=== PATIENT | male | born 1940 | race Caucasian/White ===

== ENCOUNTER 2019-02-06 12:33 | Inpatient (IN) | payer MEDICARE, BC ==
[2019-02-06] MEDS ORDERED: SODIUM CHLORIDE 0.9% 500 ML 500 ML IV STA (12:34)
--- NOTE | 2019-02-06 12:55 | ED ---
General Adult HPI - General Chief complaint: Neuro Symptoms/Deficit Stated complaint: Poss stroke Time Seen by Provider: 02/06/19 12:34 Source: patient, RN notes reviewed, old records reviewed Mode of arrival: wheelchair Limitations: no limitations - History of Present Illness Initial comments: 78-year-old male presenting with slurred speech, right arm and right leg weakness. Patient symptoms began yesterday at 4 PM this was approximately 20 hours prior to arrival. He was seen by his primary care physician who recommended he come to the emergency department for evaluation. Patient is currently on 81 mg aspirin, no anticoagulation. He does report a headache which began suddenly yesterday afternoon. He went to bed after taking Tylenol with so me improvement in his symptoms. He has no previous history of CVA or TIA. Patient does endorse some gait instability. Denies central chest pain. Denies vomiting or diarrhea. - Related Data Home Medications Medication Instructions Recorded Confirmed Aspirin [Adult Low Dose Aspirin EC] 81 mg PO HS 06/18/16 02/06/19 Metoprolol Tartrate [Lopressor] 50 mg PO BID 06/18/16 02/06/19 Gabapentin [Neurontin] 300 mg PO BID 02/06/19 02/06/19 Montelukast [Singulair] 10 mg PO HS 02/06/19 02/06/19 Propylene Glycol/Peg 400/Pf 1 drop BOTH EYES Q4H PRN 02/06/19 02/06/19 [Systane 0.3-0.4% Eye Drops] Allergies Allergy/AdvReac Type Severity Reaction Status Date / Time acetaminophen [From Vicodin] Allergy Unknown Verified 02/06/19 14:08 erythromycin base Allergy hives, Verified 02/06/19 14:08 tongue swelling hydrocodone [From Vicodin] Allergy Unknown Verified 02/06/19 14:08 oxycodone [From OxyContin] Allergy Unknown Verified 02/06/19 14:08 Penicillins Allergy Unknown Verified 02/06/19 14:08 Childhood Review of Systems ROS Statement: Those systems with pertinent positive or pertinent negative responses have been documented in the HPI. ROS Other: All systems not noted in ROS Statement are negative. Past Medical History Past Medical History: GERD/Reflux, Hypertension Additional Past Medical History / Comment(s): hx ulcers, History of Any Multi-Drug Resistant Organisms: None Reported Past Surgical History: Appendectomy, Back Surgery, Joint Replacement, Tonsillectomy Additional Past Surgical History / Comment(s): silke knee replacement, silke shoulder rotator cuff, rt shoulder replacement, silke cataract surgery Past Anesthesia/Blood Transfusion Reactions: No Reported Reaction Past Psychological History: No Psychological Hx Reported Smoking Status: Former smoker Past Alcohol Use History: None Reported Past Drug Use History: None Reported - Past Family History Mother Family Medical History: Cancer General Exam Limitations: no limitations General appearance: alert, in no apparent distress Head exam: Present: atraumatic, normocephalic Eye exam: Present: normal appearance, PERRL, EOMI ENT exam: Present: normal exam Neck exam: Present: normal inspection. Absent: tenderness, meningismus Respiratory exam: Present: normal lung sounds bilaterally. Absent: respiratory distress Cardiovascular Exam: Present: normal rhythm, bradycardia GI/Abdominal exam: Present: soft. Absent: distended, tenderness Extremities exam: Present: normal inspection, normal capillary refill. Absent: pedal edema Neurological exam: Present: alert, oriented X3, motor sensory deficit, other (NIH 4) Psychiatric exam: Present: normal affect, normal mood Skin exam: Present: warm, dry, intact. Absent: cyanosis, diaphoretic Course Vital Signs 02/06/19 02/06/19 02/06/19 12:35 12:47 12:50 Temperature 97.5 F L Pulse Rate 53 L 55 L Respiratory 18 14 Rate Blood Pressure 162/73 O2 Sat by Pulse 98 98 97 Oximetry 02/06/19 02/06/19 02/06/19 13:00 13:10 13:20 Temperature Pulse Rate 57 L Respiratory 23 Rate Blood Pressure 165/83 165/83 170/79 O2 Sat by Pulse 96 Oximetry - Reevaluation(s) Reevaluation #1: 02/06/19 1302 Case discussed with stroke neurologist Dr. Gustafson, patient is not TPA candidate, he is not a thrombectomy candidate given the low NIH and onset of symptoms. EKG Findings - EKG Comments: EKG Findings:: EKG: Sinus bradycardia, LVH, rate of 52, AK interval 164, QRS duration 96, QTC 422, no ST segment elevation. Medical Decision Making - Medical Decision Making 78-year-old male presenting with 20 hours history of dysarthria, right arm weakness and right leg weakness. Patient NIH is 4. He is outside the TPA window. He is still within intervention window, stroke was activated upon arrival. CT CT angiography is obtained. Case is discussed with stroke neurologist. CT is negative for intracranial hemorrhage or mass effect, CT angiography negative for acute occlusion or stenosis. Patient has mild hyperkalemia and elevated serum creatinine. He is given IV hydration. Blood p ressure is elevated and will allow for elevated blood pressure in the setting of acute stroke. Patient is given an aspirin and IV hydration emergency department. Will be admitted for further stroke evaluation. Case is discussed with Dr. Delaney who will admit the patient. - Lab Data Result diagrams: 02/06/19 12:53 02/06/19 12:53 Lab Results 02/06/19 02/06/19 02/06/19 Range/Units 12:53 12:53 12:53 WBC 7.7 (3.8-10.6) k/uL RBC 5.50 (4.30-5.90) m/uL Hgb 15.9 (13.0-17.5) gm/dL Hct 48.1 (39.0-53.0) % MCV 87.4 (80.0-100.0) fL MCH 28.9 (25.0-35.0) pg MCHC 33.1 (31.0-37.0) g/dL RDW 13.9 (11.5-15.5) % Plt Count 237 (150-450) k/uL Neutrophils % 56 % Lymphocytes % 25 % Monocytes % 10 % Eosinophils % 4 % Basophils % 1 % Neutrophils # 4.3 (1.3-7.7) k/uL Lymphocytes # 1.9 (1.0-4.8) k/uL Monocytes # 0.8 (0-1.0) k/uL Eosinophils # 0.3 (0-0.7) k/uL Basophils # 0.1 (0-0.2) k/uL PT 11.6 (9.0-12.0) sec INR 1.1 (<1.2) APTT 24.6 (22.0-30.0) sec Sodium 142 (137-145) mmol/L Potassium 5.4 H (3.5-5.1) mmol/L Chloride 106 (98-107) mmol/L Carbon Dioxide 26 (22-30) mmol/L Anion Gap 10 mmol/L BUN 27 H (9-20) mg/dL Creatinine 1.33 H (0.66-1.25) mg/dL Est GFR (CKD-EPI)AfAm 58 (>60 ml/min/1.73 sqM) Est GFR (CKD-EPI)NonAf 50 (>60 ml/min/1.73 sqM) Glucose 101 H (74-99) mg/dL POC Glucose (mg/dL) (75-99) mg/dL POC Glu [employer] ID Calcium 9.7 (8.4-10.2) mg/dL Total Bilirubin 0.8 (0.2-1.3) mg/dL AST 32 (17-59) U/L ALT 21 (21-72) U/L Alkaline Phosphatase 87 (38-126) U/L Troponin I (0.000-0.034) ng/mL Total Protein 7.4 (6.3-8.2) g/dL Albumin 4.5 (3.5-5.0) g/dL 02/06/19 02/06/19 Range/Units 12:53 12:59 WBC (3.8-10.6) k/uL RBC (4.30-5.90) m/uL Hgb (13.0-17.5) gm/dL Hct (39.0-53.0) % MCV (80.0-100.0) fL MCH (25.0-35.0) pg MCHC (31.0-37.0) g/dL RDW (11.5-15.5) % Plt Count (150-450) k/uL Neutrophils % % Lymphocytes % % Monocytes % % Eosinophils % % Basophils % % Neutrophils # (1.3-7.7) k/uL Lymphocytes # (1.0-4.8) k/uL Monocytes # (0-1.0) k/uL Eosinophils # (0-0.7) k/uL Basophils # (0-0.2) k/uL PT (9.0-12.0) sec INR (<1.2) APTT (22.0-30.0) sec Sodium (137-145) mmol/L Potassium (3.5-5.1) mmol/L Chloride (98-107) mmol/L Carbon Dioxide (22-30) mmol/L Anion Gap mmol/L BUN (9-20) mg/dL Creatinine (0.66-1.25) mg/dL Est GFR (CKD-EPI)AfAm (>60 ml/min/1.73 sqM) Est GFR (CKD-EPI)NonAf (>60 ml/min/1.73 sqM) Glucose (74-99) mg/dL POC Glucose (mg/dL) 94 (75-99) mg/dL POC Glu [employer] ID Latonya Arteaga A Calcium (8.4-10.2) mg/dL Total Bilirubin (0.2-1.3) mg/dL AST (17-59) U/L ALT (21-72) U/L Alkaline Phosphatase (38-126) U/L Troponin I <0.012 (0.000-0.034) ng/mL Total Protein (6.3-8.2) g/dL Albumin (3.5-5.0) g/dL Disposition Clinical Impression: Cerebrovascular accident Disposition: ADMITTED IP TO THIS [facility] Condition: Stable Is patient prescribed a controlled substance at d/c from ED?: No Referrals: Judson Newman MD [Primary Care Provider] - 1-2 days Decision to Admit Reason: Admit from EC Decision Date: 02/06/19 Decision Time: 14:39
[2019-02-06 13:07] LABS: Basophils # (A) 0.1 k/uL (0-0.2); Basophils % (A) 1 %; Eosinophils # (A) 0.3 k/uL (0-0.7); Eosinophils % (A) 4 %; HCT 48.1 % (39.0-53.0); HGB 15.9 gm/dL (13.0-17.5); Lymphocytes # (A) 1.9 k/uL (1.0-4.8); Lymphocytes % (A) 25 %; MCH 28.9 pg (25.0-35.0); MCHC 33.1 g/dL (31.0-37.0); MCV 87.4 fL (80.0-100.0); Mean Platelet Volume 6.8; Monocytes # (A) 0.8 k/uL (0-1.0); Monocytes % (A) 10 %; Neutrophils # (A) 4.3 k/uL (1.3-7.7); Neutrophils % (A) 56 %; Platelet Count 237 k/uL (150-450); RDW 13.9 % (11.5-15.5); WBC 7.7 k/uL (3.8-10.6)
[2019-02-06 13:13] LABS: INR 1.1 (<1.2); Partial Thromboplastin Time 24.6 sec (22.0-30.0); Prothrombin Time 11.6 sec (9.0-12.0)
--- NOTE | 2019-02-06 13:19 | CT ---
EXAMINATION TYPE: CT brain wo con DATE OF EXAM: 02/06/2019 COMPARISON: None HISTORY: Right sided weakness starting yesterday. Unenhanced CT of the brain was performed. The ventricles, basal cisterns and sulci overlying the cerebral convexities demonstrate mild enlargem ent. There is no evidence for intracranial hemorrhage or sulcal effacement. There is decreased attenuation about the periventricular white matter and deep white matter of both c erebral hemispheres, compatible with chronic small vessel ischemia. Differential diagnosis does inclu de demyelination. No mass effects are seen.No midline shift. Osseous calvarium is intact. If symptoms persist consider MRI. IMPRESSION: 1. Age related atrophic and chronic small vessel ischemic change without acute intracranial process s een at this time.
[2019-02-06 13:21] LABS: Albumin 4.5 g/dL (3.5-5.0); Calcium 9.7 mg/dL (8.4-10.2); Potassium 5.4 mmol/L (3.5-5.1); Total Bilirubin 0.8 mg/dL (0.2-1.3); Total Protein 7.4 g/dL (6.3-8.2)
[2019-02-06 13:26] LABS: Glucose,Whole Blood 94 mg/dL (75-99)
--- NOTE | 2019-02-06 13:30 | XR ---
EXAMINATION TYPE: XR chest 1V portable DATE OF EXAM: 02/06/2019 COMPARISON: None INDICATION: Altered mental status right-sided weakness TECHNIQUE: Single frontal view of the chest is obtained. FINDINGS: The heart size is enlarged. The pulmonary vasculature is normal. The lungs are clear. Right shoulder prosthesis is evident. IMPRESSION: 1. Cardiomegaly
--- NOTE | 2019-02-06 13:32 | CT ---
EXAMINATION TYPE: CT angio head neck DATE OF EXAM: 02/06/2019 COMPARISON: None HISTORY: Right sided weakness starting yesterday. CT DLP: 2945.4 mGycm CONTRAST: Performed with IV Contrast, patient injected with 100 mL of Isovue 370. Combination Contrast CTA cervical carotids and [place] CTA cervical carotids with 3-D recons truction Contrast CTA of the cervical carotids was performed 3-D reconstruction imaging obtained at a separate workstation. Right carotid system: Mild plaque is seen of the right common carotid artery. There is mild plaque a lso noted at the carotid bulb and proximal ICA. No significant diameter reduction. ECA is patent. Right vertebral artery appears unremarkable. Left carotid system: Mild plaque is seen of the left common carotid artery. There is mild plaque als o noted at the carotid bulb and proximal ICA. No significant diameter reduction. ECA is patent. Lef t vertebral artery appears unremarkable. IMPRESSION: 1. No significant diameter reduction to account for the patient's symptoms. CTA [place] with 3-D reconstruction Contrast CTA of the [place] was performed 3-D reconstruction imaging obtained at a separate workstation. Vertebrobasilar system as well as intracranial portions of the internal carotid arteries and their ma giovana tributaries are patent. I do not see evidence for sizable aneurysm or vascular malformation. Pl ease note MRI provides greater sensitivity and specificity. Visualized brain appears grossly unremar kable. IMPRESSION: 1. No significant abnormality.
[2019-02-06] MEDS ORDERED: SODIUM CHLORIDE 0.9% 500 ML 500 ML IV ONE (13:57)
[2019-02-06] MEDS ORDERED: ASPIRIN 325 MG TAB PO STA (13:57)
[2019-02-06] MEDS: SODIUM CHLORIDE 0.9% 1,000 ML IV SCH (14:15)
[2019-02-06] MEDS ORDERED: ARTIFICIAL TEARS-HYPROMELLOSE DROPS 15 ML BTL BOTH EYES PRN (15:25)
--- NOTE | 2019-02-06 15:39 | P.HPIM ---
History of Present Illness H&P Date: 02/06/19 Chief Complaint: Right-sided weakness and slurred speech The patient is a right hand dominant 78-year-old morbidly obese woman with a past medical history of essential hypertension, former smoker quit 28 years ago who presents to the ER via private vehicle after being referred here by his PCP. Apparently the patient began having slurred speech and right-sided weakness at approximately 4 PM yesterday, with the sudden onset of a global headache and right-sided facial weakness. He denies any loss of consciousness, blurry vision, Patient's reported that she did not take them here at that time as he was having a drink of beer and she thought that his symptoms might of been due to to alcohol. Later that evening the patient was unable to be comfortable and apparently began having episodic spasms on the right the patient is also had difficulty maintaining his balance when ambulating. At present the patient reports that he feels better and that his symptoms A weakness are much improved. The patient also reported some right sided chest pressure that was moderate nonradiating, he denied any shortness of breath, denied palpitations, denied lower extremity swelling, denies subjective fevers chills night sweats. In the ER the patient had a comprehensive workup CT angiography of the head and neck are performed that showed age-related atrophy and chronic small vessel ischemic changes without any acute intracranial process and was also negative for any clinically significant stenosis, EKG showed sinus bradycardia Without suggestion of any acute ischemia. Chest x-ray was consulted with cardiomegaly but was negative for any acute process. Noted lab abnormalities included a potassium of 5.4, BUN of 27 creatinine of 1.33, troponin was negative at less than 0.012. The patient was given aspirin and a liter of fluids and recommended for admission Review of Systems Pertinent positives per HPI all other review of systems otherwise negative Past Medical History Past Medical History: GERD/Reflux, Hypertension Additional Past Medical History / Comment(s): hx ulcers, History of Any Multi-Drug Resistant Organisms: None Reported Past Surgical History: Appendectomy, Back Surgery, Joint Replacement, Tonsillectomy Additional Past Surgical History / Comment(s): silke knee replacement, silke shoulder rotator cuff, rt shoulder replacement, silke cataract surgery Past Anesthesia/Blood Transfusion Reactions: No Reported Reaction Past Psychological History: No Psychological Hx Reported Smoking Status: Former smoker Past Alcohol Use History: None Reported Past Drug Use History: None Reported - Past Family History Mother Family Medical History: Cancer Medications and Allergies Home Medications Medication Instructions Recorded Confirmed Type Aspirin [Adult Low Dose Aspirin EC] 81 mg PO HS 06/18/16 02/06/19 History Metoprolol Tartrate [Lopressor] 50 mg PO BID 06/18/16 02/06/19 History Gabapentin [Neurontin] 300 mg PO BID 02/06/19 02/06/19 History Montelukast [Singulair] 10 mg PO HS 02/06/19 02/06/19 History Propylene Glycol/Peg 400/Pf 1 drop BOTH EYES Q4H PRN 02/06/19 02/06/19 History [Systane 0.3-0.4% Eye Drops] Allergies Allergy/AdvReac Type Severity Reaction Status Date / Time acetaminophen [From Vicodin] Allergy Unknown Verified 02/06/19 14:08 erythromycin base Allergy hives, Verified 02/06/19 14:08 tongue swelling hydrocodone [From Vicodin] Allergy Unknown Verified 02/06/19 14:08 oxycodone [From OxyContin] Allergy Unknown Verified 02/06/19 14:08 Penicillins Allergy Unknown Verified 02/06/19 14:08 Childhood Physical Exam Vitals: Vital Signs Temp Pulse Resp BP Pulse Ox 02/06/19 13:20 57 L 23 170/79 96 02/06/19 13:10 165/83 02/06/19 13:00 165/83 02/06/19 12:50 55 L 14 97 02/06/19 12:47 98 02/06/19 12:35 97.5 F L 53 L 18 162/73 98 Intake and Output 02/06/19 02/06/19 02/06/19 06:59 14:59 22:59 Other: Weight 99.79 kg Constitutional: No acute distress, conversant, pleasant Eyes: Anicteric sclerae, moist conjunctiva, no lid-lag, PERRLA ENMT: NC/AT,Oropharynx clear, no erythema, exudates Neck:Supple, FROM, no masses, or JVD, No carotid bruits; No thyromegaly Lungs: Clear to auscultation, Clear to percussion, Normal respiratory effort, no accessory muscle use Cardiovascular: Heart regular in rate and rhythm, No murmurs, gallops, or rubs no peripheral edema Abdominal: Soft Nontender, nom distended, no guarding, no rebound or rigidity, Normoactive bowel sounds No hepatomegaly, No splenomegaly, No palpable mass No abdominal wall hernia noted Skin: Normal temperature, tone, texture, turgor, No induration No subcutaneous nodules, No rash, lesions, No ulcers Extremities:No digital cyanosis No clubbing, Pedal pulses intact and symmetrical Radial pulses intact and symmetrical Normal gait and station, No calf tenderness Psychiatric: Alert and oriented to person, place and time, Appropriate affect Intact judgement Neuro: Muscles Strength 5/5 in all 4 extremities, Sensation to light touch grossly present throughout, Cranial nerves II-XII grossly intact. No focal sensory deficits Results CBC & Chem 7: 02/06/19 12:53 02/06/19 12:53 Labs: Abnormal Lab Results - Last 24 Hours (Table) 02/06/19 Range/Units 12:53 Potassium 5.4 H (3.5-5.1) mmol/L BUN 27 H (9-20) mg/dL Creatinine 1.33 H (0.66-1.25) mg/dL Glucose 101 H (74-99) mg/dL Assessment and Plan (1) Right sided weakness Current Visit: Yes Status: Acute Code(s): R53.1 - WEAKNESS SNOMED Code(s): 645540706 (2) Accelerated hypertension Current Visit: Yes Status: Acute Code(s): I10 - ESSENTIAL (PRIMARY) HYPERTENSION SNOMED Code(s): 08864074 (3) Obesity Current Visit: Yes Status: Acute Code(s): E66.9 - OBESITY, UNSPECIFIED SNOMED Code(s): 675819003 (4) Sinus bradycardia Current Visit: Yes Status: Acute Code(s): R00.1 - BRADYCARDIA, UNSPECIFIED SNOMED Code(s): 93124169 (5) LORI (acute kidney injury) Current Visit: Yes Status: Acute Code(s): N17.9 - ACUTE KIDNEY FAILURE, UNSPECIFIED SNOMED Code(s): 94671604 (6) Hyperkalemia Current Visit: Yes Status: Acute Code(s): E87.5 - HYPERKALEMIA SNOMED Code(s): 37505321 Plan: The patient is admitted with concern for acute CVA after presented with right- sided weakness, the patient presented at approximately 20 hours after symptom onset and was identified as being not a candidate for TPA as was well outside of stroke window. CTA of the head and neck was negative for any acute intracranial pathology, will plan to consult neurology obtain a 2-D echocardiogram, and MRI. We'll continue to patient on antiplatelet Therapy with aspirin, resume his metoprolol and await further recommendation by neurology. Noted LORI vs CKD will hydrate and see if his creatinine returned to normal possibly prerenal We'll continue to follow his clinical course Anticipated discharge: 1-2 days CODE STATUS: Full code Discussed plan of care with the patient and his Time with Patient: Greater than 30
--- NOTE | 2019-02-06 18:51 | MR ---
EXAMINATION TYPE: MR brain wo con DATE OF EXAM: 02/06/2019 COMPARISON: CT brain 02/06/2019 HISTORY: Right sided weakness CONTRAST: Performed utilizing 0 mL intravenous Gadavist gadolinium contrast. TECHNIQUE: Multiplanar, multiecho imaging on a 3.0 T[place]ani magnet is performed through the brain. Stud y is performed within 24 hours of arrival to the hospital. The craniovertebral junction is normal. The pituitary is normal. Diffusion-weighted imaging is performed. Increased radiotracer accumulation within the left latasha com patible with an acute brainstem ischemic change. Mild increased signal is present within the left latasha on the inversion recovery weighted sequence cor responding to the diffusion-weighted imaging. There are additional multiple subcortical and periventricular white matter changes present bilaterall y likely on the basis of chronic white matter ischemic change. Ventricles and sulci are prominent for the patient age. IMPRESSIONS: 1. Focal diffusion increased signal within the left latasha near the midline compatible with an acute is chemic change within the brainstem. 2. Extensive periventricular deep white matter changes compatible with chronic white matter ischemic change. A [place] level critical message alert has been initiated for Rashid Delaney MD via the [employer] Critical Results System on 02/06/2019 6:48 PM. This message alert has been sent to Rashid Delaney MD via the preferences provided by the clinician for the receipt of Radiology Critical Findings. Message ID [id number].
[2019-02-06 18:58] VITALS: BMI 34.8
[2019-02-06] MEDS ORDERED: IBUPROFEN 400 MG TAB PO PRN (20:35)
[2019-02-06] MEDS ORDERED: NON-FORMULARY DRUG (Aspirin [Adult Low Dose Aspirin Ec] 81 MG) PO SCH (21:00)
[2019-02-06] MEDS: METOPROLOL TARTRATE 50 MG TAB PO SCH (21:27)
[2019-02-06] MEDS: GABAPENTIN 300 MG CAP PO SCH (21:27)
[2019-02-06] MEDS: MONTELUKAST 10 MG TAB PO SCH (21:28)
[2019-02-06] MEDS: ATORVASTATIN 80 MG TAB PO SCH (21:28)
[2019-02-07] MEDS: SODIUM CHLORIDE 0.9% 1,000 ML IV SCH ×2 (03:38→17:00)
[2019-02-07 06:33] LABS: Calcium 8.8 mg/dL (8.4-10.2); Potassium 4.8 mmol/L (3.5-5.1)
[2019-02-07] MEDS: METOPROLOL TARTRATE 50 MG TAB PO SCH ×2 (08:54→20:02)
[2019-02-07] MEDS: GABAPENTIN 300 MG CAP PO SCH ×2 (08:54→20:01)
[2019-02-07] MEDS ORDERED: ASPIRIN 325 MG TAB PO SCH (09:00)
--- NOTE | 2019-02-07 15:45 | P.PN ---
Subjective Progress Note Date: 02/07/19 Principal diagnosis: Acute CVA Patient was seen and examined. No acute events overnight. Patient reports improvement in his symptoms since admission. He continues to complain of right upper and lower extremity weakness. He denies any slurred speech or focal T swallowing. He denies any difficulty with his gait, states that he was able to ambulate up and down the hallways. He denies any chest pain, shortness of breath or palpitations. Family is at bedside. Looking for to going home. Objective - Vital Signs Vital signs: Vital Signs Temp 97.5 F L 02/07/19 11:59 Pulse 60 02/07/19 11:59 Resp 16 02/07/19 11:59 BP 149/73 02/07/19 11:59 Pulse Ox 96 02/07/19 11:59 Intake & Output 02/06/19 02/07/19 02/07/19 18:59 06:59 18:59 Intake Total 1000 300 240 Balance 1000 300 240 Weight 99.79 kg 99.7 kg Intake: Amount of Fluid Infused ( 1000 ml) Intake, IV Titration 300 Amount Sodium Chloride 0.9% 1, 300 000 ml @ 75 mls/hr IV . [id number] [facility] Rx#:[id number] Oral 240 Other: Voiding Method Toilet # Voids 1 - Exam General: [non toxic], [no distress], [appears at stated age] Derm: [warm], [dry] Head: [atraumatic], [normocephalic], [symmetric] Eyes: [EOMI], [no lid lag], [anicteric sclera] Mouth: [no lip lesion], [mucus membranes moist] Cardiovascular: [S1S2 reg], [no murmur], [positive DP pulse bilateral] Lungs: [CTA bilateral], [no rhonchi, no rales] , [no accessory muscle use] Abdominal: [soft], [ nontender to palpation], [no guarding], [no appreciable organomegaly] Ext: [no gross muscle atrophy], [no edema], [no contractures] Neuro: [ CN II-XI grossly intact], [right-sided 4 out of 5 upper and lower extremity, 5 out of 5 on the left side], [right-sided ataxia on [id number]] Psych: [Alert], [oriented], [appropriate affect] - Labs CBC & Chem 7: 02/06/19 12:53 02/07/19 05:53 Labs: Abnormal Lab Results - Last 24 Hours (Table) 02/07/19 Range/Units 05:53 Chloride 112 H (98-107) mmol/L BUN 25 H (9-20) mg/dL HDL Cholesterol 28 L (40-60) mg/dL Assessment and Plan Assessment: Assessment and Plan Acute CVA in the left latasha Hypertension Obesity Acute kidney injury CT brain and CTA head and neck negative for acute CVA. MRI brain confirms stroke in the left latasha. Lipid panel shows total cholesterol 139, LDL of 84 and HDL of 28. Plan: Continue Lipitor. Will change aspirin to Plavix. Advance neurochecks. Telemetry monitoring. Follow PT, OT and speech therapy. Follow n eurology consultation. Follow echocardiogram. BP 149/73. Plan: Continue metoprolol. Monitor vitals, adjust medications as necessary. BMI 34.4. Plan: Structured weight loss program. BUN 27-25. Creatinine from 1.332 within normal limits. Likely secondary to dehydration. Plan: Continue normal saline at 75 mL per hour. Daily BMP. DVT prophylaxis: [Heparin] Discussed with: [Patient and family] Anticipated discharge: [1-2 days] Anticipated discharge place: [Home versus rehab] A total of [30] minutes was spent on the care of this complex patient more than 50% of the time was spent in counseling and care coordination. Patient diagnosed with acute CVA. Workup underway. Neurology consultation pending. PT will continue to follow. Patient is pending clinical improvement.
--- NOTE | 2019-02-07 15:46 | P.CNNES ---
History of Present Illness Consult date: 02/07/19 Reason for Consult: CVA History of Present Illness: Patient is a 78-year-old male, with no significant past medical history, who developed stroke symptoms 2 days ago, on at 4 PM. Earlier he had drank a beer, and sometimes he gets a reaction after drinking beer. He was noticed to have some weakness on the right side, slurred speech, unsteady, walking like a drunk, walking with a wide base. He also noticed some numbness of the right side of the face. He attributed the symptoms to drinking beer, therefore did not take it seriously. The symptoms persisted by the next day, therefore he decided to come to the ER and arrived here yesterday on Saturday at around noon. Patient's blood pressure was 162/73, pulse rate 53 and temperature 97.5. Patient underwent computed tomography scan of the head without contrast, which revealed age-related atrophic and chronic small vessel ischemic changes without acute intracranial process. CTA of head and neck were normal. Patient was not a candidate for TPA, as he came outside the window for TPA. EKG showed sinus bradycardia. Patient underwent MRI of the brain without contrast, which revealed focal diffusion increased signal within the left latasha near the midline compatible with an acute ischemic change within the brainstem. Extensive periventricular white matter changes compatible with chronic white matter ischemic change. Chest x-ray showed cardiomegaly. Patient states that since he arrived to the hospital, he is feeling better. Patient denies any history of hypertension, diabetes. In fact his blood pressure was running normal 126/60 yesterday. He smoked 1 pack per day for 30- 40 years, quit 28 years ago. Patient states that he has been taking low-dose aspirin 81 mg for last 15-20 years. Patient's blood test shows normal CBC, PT/PTT. Sodium is normal potassium 5.4, BUN 27, creatinine 1.33. Total cholesterol is 139, LDL 84, HDL 28. Review of Systems As per HPI. Denies any chest pain shortness of breath, vision loss, diplopia. Past Medical History Past Medical History: GERD/Reflux, Hypertension Additional Past Medical History / Comment(s): hx ulcers, History of Any Multi-Drug Resistant Organisms: None Reported Past Surgical History: Appendectomy, Back Surgery, Joint Replacement, Tonsillectomy Additional Past Surgical History / Comment(s): silke knee replacement, silke shoulder rotator cuff, rt shoulder replacement, silke cataract surgery Past Anesthesia/Blood Transfusion Reactions: No Reported Reaction Smoking Status: Former smoker - Past Family History Mother Family Medical History: Cancer Medications and Allergies Home Medications Medication Instructions Recorded Confirmed Type Aspirin [Adult Low Dose Aspirin EC] 81 mg PO HS 06/18/16 02/06/19 History Metoprolol Tartrate [Lopressor] 50 mg PO BID 06/18/16 02/06/19 History Gabapentin [Neurontin] 300 mg PO BID 02/06/19 02/06/19 History Montelukast [Singulair] 10 mg PO HS 02/06/19 02/06/19 History Propylene Glycol/Peg 400/Pf 1 drop BOTH EYES Q4H PRN 02/06/19 02/06/19 History [Systane 0.3-0.4% Eye Drops] Allergies Allergy/AdvReac Type Severity Reaction Status Date / Time acetaminophen [From Vicodin] Allergy Unknown Verified 02/06/19 14:08 erythromycin base Allergy hives, Verified 02/06/19 14:08 tongue swelling hydrocodone [From Vicodin] Allergy Unknown Verified 02/06/19 14:08 oxycodone [From OxyContin] Allergy Unknown Verified 02/06/19 14:08 Penicillins Allergy Unknown Verified 02/06/19 14:08 Childhood Physical Examination - Vital Signs Vital Signs: Vital Signs Temp Pulse Pulse Resp BP BP Pulse Ox 02/07/19 11:59 97.5 F L 60 16 149/73 96 02/07/19 08:00 97.5 F L 66 16 121/62 93 L 02/07/19 04:00 98.1 F 67 18 129/61 95 02/07/19 00:00 98.0 F 69 18 120/58 95 02/06/19 20:00 98.1 F 63 18 133/61 95 02/06/19 17:35 96.7 F L 66 16 189/81 93 L 02/06/19 16:50 98.0 F 66 15 137/94 97 02/06/19 16:40 62 20 160/69 94 L 02/06/19 16:30 63 17 154/73 100 02/06/19 16:20 56 L 21 154/73 94 L 02/06/19 16:00 158/84 02/06/19 15:50 158/84 02/06/19 15:40 62 14 174/90 Intake and Output 02/07/19 02/07/19 02/07/19 06:59 14:59 22:59 Intake Total 240 Balance 240 Intake: Oral 240 Other: Voiding Method Toilet # Voids 1 Weight 99.7 kg On examination patient is an elderly male, very pleasant in no acute distress. Patient's speech is mildly dysarthric but no aphasia. On cranial nerve examination pupils are round and reacting visual chun are full, extraocular muscles are intact. Patient has mild right facial asymmetry, central type. Tongue protrudes to the midline. Palatal elevation and sensation normal on muscle strength testing patient has mild right pronator drift. The strength is normal in the left arm and left leg except left toe extension which is weak chronically for last several years however. On the right side his arm and deltoid is slightly weak partly related to some shoulder surgery in the past. The biceps and triceps appears normal, lathe tender is slightly decreased about 5-as compared to the left. Reflexes are diminished. Sensations are equal. There is mild dysmetria and ataxia for [id number] testing on the right. Tone and bulk of muscles normal. Patient walks with a mild wide base. Results - Laboratory Findings CBC and BMP: 02/06/19 12:53 02/07/19 05:53 Abnormal Lab Findings: Abnormal Labs 02/06/19 02/07/19 12:53 05:53 Potassium 5.4 H Chloride 112 H BUN 27 H 25 H Creatinine 1.33 H Glucose 101 H HDL Cholesterol 28 L Assessment and Plan Assessment: * Acute ischemic stroke, left pontine, probably due to small vessel disease. * Hypertension * X tobacco use Plan: * Await 2-D echo to rule out embolic source. * Patient has failed aspirin, therefore we will add Plavix 75 mg to the regimen. * Agree with starting low-dose Lipitor. * Do not aggressively treat blood pressure for 24 hours, unless > 200/110 for permissible hypertension in acute stroke stage. * PT OT, evaluate gait. Speech therapy.
[2019-02-07] MEDS: CLOPIDOGREL 75 MG TAB PO SCH (16:48)
[2019-02-07] MEDS: ATORVASTATIN 80 MG TAB PO SCH (20:01)
[2019-02-07] MEDS: HEPARIN SODIUM,PORCINE 5,000 UNIT/ML 1 ML VIAL SQ SCH (20:02)
[2019-02-07] MEDS: MONTELUKAST 10 MG TAB PO SCH (20:02)
[2019-02-08] MEDS: SODIUM CHLORIDE 0.9% 1,000 ML IV SCH (05:09)
[2019-02-08] MEDS: GABAPENTIN 300 MG CAP PO SCH (08:14)
[2019-02-08] MEDS: HEPARIN SODIUM,PORCINE 5,000 UNIT/ML 1 ML VIAL SQ SCH (08:14)
[2019-02-08] MEDS: CLOPIDOGREL 75 MG TAB PO SCH (08:14)
[2019-02-08] MEDS: METOPROLOL TARTRATE 50 MG TAB PO SCH (08:14)
[2019-02-08] MEDS ORDERED: ASPIRIN 81 MG PO SCH (09:00)
--- NOTE | 2019-02-08 11:19 | P.CRDCN ---
History of Present Illness Consult date: 02/08/19 Chief complaint: Right sided weakness History of present illness: This is an 78-year-old gentleman with a past medical history significant for hy pertension who was admitted to the hospital with TIA/stroke. The patient was in his usual state of health until yesterday when he was sitting on the kitchen table with his drinking a beer after that, the patient wants to walk and he felt difficulty walking and subsequently he felt right arm and right leg weakness with associated slurred speech. No loss of consciousness. No symptoms of chest pain or chest discomfort. And no feeling of heart racing or fluttering. Because of that he was admitted to the hospital for further evaluation. We involved in his care because off an episode of nonsustained ventricular tachycardia of 8 beats. I was informed about that by the nurse taking care of the patient. There is no documentation of the nonsustained ventricular tachycardia in the chart. He underwent a workup which came in to be unremarkable including electrolytes with potassium and magnesium. Troponin came in to be unremarkable with the EKG showed sinus rhythm without any ischemic ST or T-wave abnormalities. More importantly, the patient's symptoms have resolved completely. He underwent an echocardiogram which we will follow-up with that. 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 No coronary artery disease, congestive heart failure, or cardiac arrhythmia. Past Medical History Past Medical History: GERD/Reflux, Hypertension Additional Past Medical History / Comment(s): hx ulcers, History of Any Multi-Drug Resistant Organisms: None Reported Past Surgical History: Appendectomy, Back Surgery, Joint Replacement, Tonsillectomy Additional Past Surgical History / Comment(s): silke knee replacement, silke shoulder rotator cuff, rt shoulder replacement, silke cataract surgery Past Anesthesia/Blood Transfusion Reactions: No Reported Reaction Smoking Status: Former smoker - Past Family History Mother Family Medical History: Cancer Medications and Allergies Home Medications Medication Instructions Recorded Confirmed Type Aspirin [Adult Low Dose Aspirin EC] 81 mg PO HS 06/18/16 02/06/19 History Metoprolol Tartrate [Lopressor] 50 mg PO BID 06/18/16 02/06/19 History Gabapentin [Neurontin] 300 mg PO BID 02/06/19 02/06/19 History Montelukast [Singulair] 10 mg PO HS 02/06/19 02/06/19 History Propylene Glycol/Peg 400/Pf 1 drop BOTH EYES Q4H PRN 02/06/19 02/06/19 History [Systane 0.3-0.4% Eye Drops] Allergies Allergy/AdvReac Type Severity Reaction Status Date / Time acetaminophen [From Vicodin] Allergy Unknown Verified 02/06/19 14:08 erythromycin base Allergy hives, Verified 02/06/19 14:08 tongue swelling hydrocodone [From Vicodin] Allergy Unknown Verified 02/06/19 14:08 oxycodone [From OxyContin] Allergy Unknown Verified 02/06/19 14:08 Penicillins Allergy Unknown Verified 02/06/19 14:08 Childhood Physical Exam Vitals: Vital Signs Temp Pulse Resp BP Pulse Ox 02/08/19 08:00 97.8 F 70 16 153/79 95 02/08/19 04:00 98.0 F 63 18 142/74 95 02/08/19 00:00 98.2 F 61 18 137/66 95 02/07/19 20:00 98.4 F 69 18 161/53 95 02/07/19 16:00 97.0 F L 65 18 146/75 95 02/07/19 11:59 97.5 F L 60 16 149/73 96 Intake and Output 02/07/19 02/08/19 02/08/19 22:59 06:59 14:59 Intake Total 240 Balance 240 Intake: Oral 240 Other: Voiding Method Toilet Toilet # Voids 1 1 Weight 99.8 kg - Constitutional General appearance: no acute distress - Respiratory Respiratory: bilateral: CTA - Cardiovascular Rhythm: regular Heart sounds: normal: S1, S2 Results 02/06/19 12:53 02/07/19 05:53 Current Medications Generic Name Dose Route Start Last Admin Trade Name Freq PRN Reason Stop Dose Admin Artificial Tears 1 drops 02/06/19 15:25 Artificial Tear Drops BOTH EYES Q4H PRN Dry Eye(s) Aspirin 81 mg 02/08/19 09:00 02/08/19 08:14 Aspirin PO 81 mg DAILY MARLYS Administration Atorvastatin Calcium 80 mg 02/06/19 21:00 02/07/19 20:01 Lipitor PO 80 mg HS MARLYS Administration Clopidogrel Bisulfate 75 mg 02/07/19 16:00 02/08/19 08:14 Plavix PO 75 mg DAILY MARLYS Administration Gabapentin 300 mg 02/06/19 21:00 02/08/19 08:14 Neurontin PO 300 mg BID MARLYS Administration Heparin Sodium (Porcine) 5,000 unit 02/07/19 21:00 02/08/19 08:14 Heparin SQ 5,000 unit Q12HR MARLYS Administration Sodium Chloride 1,000 mls @ 75 mls/hr 02/06/19 14:00 02/08/19 05:09 Saline 0.9% IV Not Given .[id number] MARLYS Metoprolol Tartrate 50 mg 02/06/19 21:00 02/08/19 08:14 Lopressor PO 50 mg BID MARLYS Administration Montelukast Sodium 10 mg 02/06/19 21:00 02/07/19 20:02 Singulair PO 10 mg HS MARLYS Administration Intake and Output 02/07/19 02/08/19 02/08/19 22:59 06:59 14:59 Intake Total 240 Balance 240 Intake: Oral 240 Other: Voiding Method Toilet Toilet # Voids 1 1 Weight 99.8 kg 02/06/19 12:53 02/07/19 05:53 Assessment and Plan Assessment: Assessment #1 TIA/stroke #2 hypertension #3 nonsustained ventricular tachycardia Plan #1 continue the current medical regimen #2 repeat the magnesium and potassium 4 today #3 follow-up on the echocardiogram which was performed #4 possible discharge later on today Thank you for allowing us participate in his care
[2019-02-08 12:42] VITALS: BP 165/80; PULSE 58; RESP 18; TEMP 97.9
[2019-02-08 13:06] LABS: Calcium 9.7 mg/dL (8.4-10.2); Magnesium 2.1 mg/dL (1.6-2.3); Potassium 5.3 mmol/L (3.5-5.1)
--- NOTE | 2019-02-08 13:06 | P.DS ---
Providers Date of admission: 02/06/19 14:35 Expected date of discharge: 02/08/19 Attending physician: Rashid Delaney MD Consults: 02/06/19 16:09 Consult Physician Routine Consulting Provider: Willy Osorio Consult Reason/Comments: r sided weakness Do you want consulting provider notified?: Yes 02/07/19 16:30 Consult Physician Routine Consulting Provider: Marcelo Ramesh Consult Reason/Comments: Abnormal telemetry Do you want consulting provider notified?: Yes Primary care physician: [facility] Course: The patient is a right hand dominant 78-year-old morbidly obese woman with a past medical history of essential hypertension, former smoker quit 28 years ago who presents to the ER via private vehicle after being referred here by his PCP. Apparently the patient began having slurred speech and right-sided weakness at approximately 4 PM yesterday, with the sudden onset of a global headache and right-sided facial weakness. Patient was admitted due to concerns for stroke. Neurology was consulted from the ED. CT brain and CTA head and neck was negative for acute CVA. MRI brain confirmed stroke in the left latasha. Lipid panel showed total cholesterol of 139, LDL of 84 and HDL of 28. Echocardiogram was done which is within normal limits. She was continued on Lipitor. As he was on aspirin prior to his stroke, he was switched to Plavix. Physical therapy evaluated the patient recommended home PT. Patient showed considerable improvement in his right-sided weakness prior to discharge. Otherwise, his home medications was resumed for hypertension. Patient had an acute kidney injury with a creatinine of 1.33 on admission. This was likely secondary to dehydration. He was given gentle hydration with normal saline at 75 mL per hour. Creatinine was normal at the time of discharge. Cardiology was consulted for 8 beats of nonsustained ventricular tachycardia seen on telemetry. Cardiology recommended checking potassium and magnesium which was within normal limits. Patient was seen and examined prior to discharge. No acute events overnight. Patient states that he has walked around the hallways 7 times today without any difficulties. He denies any chest pain, shortness of breath or palpitations. No nausea or vomiting. No fever or chills. Looking for to going home. General: [non toxic], [no distress], [appears at stated age] Derm: [warm], [dry] Head: [atraumatic], [normocephalic], [symmetric] Eyes: [EOMI], [no lid lag], [anicteric sclera] Mouth: [no lip lesion], [mucus membranes moist] Cardiovascular: [S1S2 reg], [no murmur], [positive DP pulse bilateral] Lungs: [CTA bilateral], [no rhonchi, no rales] , [no accessory muscle use] Abdominal: [soft], [ nontender to palpation], [no guarding], [no appreciable organomegaly] Ext: [no gross muscle atrophy], [no edema], [no contractures] Neuro: [ CN II-XI grossly intact], [right-sided 4 out of 5 upper and lower extremity, 5 out of 5 on the left side], [right-sided ataxia on [id number]] Psych: [Alert], [oriented], [appropriate affect] Assessment and Plan Acute CVA in the left latasha Hypertension Obesity Acute kidney injury CT brain and CTA head and neck negative for acute CVA. MRI brain confirms stroke in the left latasha. Lipid panel shows total cholesterol 139, LDL of 84 and HDL of 28. Plan: Continue Lipitor. Will change aspirin to Plavix. Advance neurochecks. Telemetry monitoring. PT recommending home with home PT. Follow neurology consultation. Discussed with Dr. Scott, echocardiogram is within normal limits. BP 165/80. Plan: Continue metoprolol. Monitor vitals, adjust medications as necessary. BMI 34.5. Plan: Structured weight loss program. BUN 27-25. Creatinine from 1.332 within normal limits. Likely secondary to dehydration. Plan: Continue normal saline at 75 mL per hour. Daily BMP. DVT prophylaxis: [Heparin] Discussed with: [Patient and family] Anticipated discharge: [Today] Anticipated discharge place: [Home with home PT] This complex discharge took greater than 30 minutes. Pertinent Studies: CT brain CTA head and neck MRI brain Echocardiogram chest x-ray Patient Condition at Discharge: Stable Plan - Discharge Summary Discharge Rx Participant: No New Discharge Prescriptions: New Atorvastatin [Lipitor] 80 mg PO HS #90 tab Clopidogrel [Plavix] 75 mg PO DAILY #90 tab Continue Metoprolol Tartrate [Lopressor] 50 mg PO BID Montelukast [Singulair] 10 mg PO HS Gabapentin [Neurontin] 300 mg PO BID Propylene Glycol/Peg 400/Pf [Systane 0.3-0.4% Eye Drop] 1 drop BOTH EYES Q4H PRN PRN Reason: Dry Eye(S) Discontinued Aspirin [Adult Low Dose Aspirin EC] 81 mg PO HS Discharge Medication List Metoprolol Tartrate [Lopressor] 50 mg PO BID 06/18/16 [History] Gabapentin [Neurontin] 300 mg PO BID 02/06/19 [History] Montelukast [Singulair] 10 mg PO HS 02/06/19 [History] Propylene Glycol/Peg 400/Pf [Systane 0.3-0.4% Eye Drop] 1 drop BOTH EYES Q4H PRN 02/06/19 [History] Atorvastatin [Lipitor] 80 mg PO HS #90 tab 02/08/19 [Rx] Clopidogrel [Plavix] 75 mg PO DAILY #90 tab 02/08/19 [Rx] Follow up Appointment(s)/Referral(s): Judson Newman MD [Primary Care Provider] - 1-2 days Clifton Baez MD [STAFF PHYSICIAN] - 1 Week Marcelo Ramesh MD [STAFF PHYSICIAN] - 1 Week Activity/Diet/Wound Care/Special Instructions: Diet: Cardiac Follow-up with PCP within 1-2 days of discharge. Follow-up with neurology within 1 week of discharge. Follow-up with cardiology within 1 week of discharge. Discharge Disposition: HOME SELF-CARE
[2019-02-10 10:27] LABS: Hemoglobin A1C 5.9 % (4.0-6.0)
== END 2019-02-08 14:11 | disposition home or self-care (01) | DRG 65 ==
LOC: EC 12:33 → 3SCARD 14:35
PROVIDERS: ADMIT Family Medicine; ATTEND Family Medicine
PROC: B030ZZZ Magnetic Resonance Imaging (MRI) of Brain (ICD-10-PCS; principal; 2019-02-06)
DX: I63.89 Other cerebral infarction (principal); G81.93 Hemiplegia, unspecified affecting right nondominant side; N17.9 Acute kidney failure, unspecified; I47.2 Ventricular tachycardia; E87.5 Hyperkalemia; K21.9 Gastro-esophageal reflux disease without esophagitis; Z96.611 Presence of right artificial shoulder joint; Z96.653 Presence of artificial knee joint, bilateral; E86.0 Dehydration; R00.1 Bradycardia, unspecified; E66.01 Morbid (severe) obesity due to excess calories; Z88.1 Allergy status to other antibiotic agents; Z88.0 Allergy status to penicillin; Z88.5 Allergy status to narcotic agent; Z88.6 Allergy status to analgesic agent; Z68.34 Body mass index [BMI] 34.0-34.9, adult; Z79.82 Long term (current) use of aspirin; Z79.899 Other long term (current) drug therapy; Z90.89 Acquired absence of other organs; Z90.49 Acquired absence of other specified parts of digestive tract; Z98.42 Cataract extraction status, left eye; Z98.41 Cataract extraction status, right eye; Z87.891 Personal history of nicotine dependence
CPT/HCPCS: 36415; 70450; 70496; 70498; 70551; 71045; 80048; 80053; 80061; 83036; 83735; 84484; 85025; 85610; 85730; 93005; 93306; 96360; 96361; 99285

== ENCOUNTER → 2021-07-25 | Outpatient (CLI) | payer MEDICARE, BC ==
[~2021-07-25] MED LIST: BAMLANIVIMAB (EUA) 700 MG, ETESEVIMAB (EUA) 1,400 MG in SODIUM CHLORIDE 0.9% 50 ML IVPB NR; SODIUM CHLORIDE 0.9% 50 ML IVPB NR; SODIUM CHLORIDE 0.9% 500 ML 500 ML in EMPTY BAG 1 BAG IV PRN
[2021-07-25 14:27] VITALS: TEMP 98.9
[2021-07-25 15:04] VITALS: BP 151/72; PULSE 70; RESP 16
== END ==
LOC: PROCWHC3 13:26
PROVIDERS: ATTEND Family Medicine
DX: U07.1 COVID-19 (principal); E66.9 Obesity, unspecified; I13.10 Hypertensive heart and chronic kidney disease without heart failure, with stage 1 through stage 4 chronic kidney disease, or unspecified chronic kidney disease; N18.9 Chronic kidney disease, unspecified; Z68.34 Body mass index [BMI] 34.0-34.9, adult; Z88.6 Allergy status to analgesic agent; Z88.1 Allergy status to other antibiotic agents; Z88.0 Allergy status to penicillin; Z88.5 Allergy status to narcotic agent; Z87.891 Personal history of nicotine dependence
CPT/HCPCS: 96360; J3490; M0243

== ENCOUNTER 2024-11-20 16:52 | Emergency (ER) | payer MEDICARE, BC ==
--- NOTE | 2024-11-20 17:46 | ED ---
Extremity Problem HPI - General Chief complaint: Extremity Problem,Nontraumatic Stated complaint: L hip pain Time Seen by Provider: 11/20/24 17:11 Source: patient, RN notes reviewed Mode of arrival: ambulatory Limitations: no limitations - History of Present Illness Initial comments: 84-year-old male presenting to the emergency department for complaint of left hip nontraumatic pain. States that he has been experiencing intermittent pain in the left hip over the past few months however for the past week the pain has worsened. Patient is able to ambulate at home but has not been using a cane to aid in mobility. States that earlier today when he was making his bed he had quite a bit of pain in his hip causing him to kneel onto the ground. He denies recent falls onto his or previous surgeries of the left hip. Patient has seen his primary care provider in regard to the pain and was referred to cardiology for surgical clearance. He has not yet followed up with family dinner service specialist. Has been taking Tylenol with minimal relief. He denies abdominal pain, lumbar back pain, radiation of pain, paresthesias. - Related Data Home Medications Medication Instructions Recorded Confirmed Metoprolol Tartrate [Lopressor] 50 mg PO BID 06/18/16 07/25/21 Gabapentin [Neurontin] 300 mg PO BID 02/06/19 07/25/21 Montelukast [Singulair] 10 mg PO HS 02/06/19 07/25/21 Propylene Glycol/Peg 400/Pf 1 drop BOTH EYES Q4H PRN 02/06/19 07/25/21 [Systane 0.3-0.4% Ophth Dropperette] Previous Rx's Medication Instructions Recorded Atorvastatin [Lipitor] 80 mg PO HS #90 tab 02/08/19 Clopidogrel [Plavix] 75 mg PO DAILY #90 tab 02/08/19 Allergies Allergy/AdvReac Type Severity Reaction Status Date / Time acetaminophen [From Vicodin] Allergy Unknown Verified 11/20/24 16:57 erythromycin base Allergy hives, Verified 11/20/24 16:57 tongue swelling hydrocodone [From Vicodin] Allergy Unknown Verified 11/20/24 16:57 oxycodone [From OxyContin] Allergy Unknown Verified 11/20/24 16:57 Penicillins Allergy Unknown Verified 11/20/24 16:57 Childhood Review of Systems ROS Statement: Those systems with pertinent positive or pertinent negative responses have been documented in the HPI. ROS Other: All systems not noted in ROS Statement are negative. Past Medical History Past Medical History: GERD/Reflux, Hypertension Additional Past Medical History / Comment(s): hx ulcers, History of Any Multi-Drug Resistant Organisms: None Reported Past Surgical History: Appendectomy, Back Surgery, Joint Replacement, Tonsillectomy Additional Past Surgical History / Comment(s): silke knee replacement, silke shoulder rotator cuff, rt shoulder replacement, silke cataract surgery Past Anesthesia/Blood Transfusion Reactions: No Reported Reaction Past Psychological History: No Psychological Hx Reported Smoking Status: Former smoker Past Alcohol Use History: Occasional Past Drug Use History: None Reported - Past Family History Mother Family Medical History: Cancer General Exam Limitations: no limitations General appearance: alert, in no apparent distress Cardiovascular Exam: Present: regular rate, normal rhythm, normal heart sounds. Absent: systolic murmur, diastolic murmur, rubs, gallop, clicks GI/Abdominal exam: Present: soft, normal bowel sounds. Absent: distended, tenderness, guarding, rebound, rigid Left Hip exam: Present: normal inspection, full ROM, tenderness. Absent: ecchymosis, deformity, crepitus, dislocation, external rotation, internal rotation, shortening Back exam: Present: normal inspection Course Vital Signs 11/20/24 16:55 Temperature 97.5 F L Pulse Rate 73 Respiratory 20 Rate Blood Pressure 141/68 O2 Sat by Pulse 97 Oximetry Medical Decision Making - Medical Decision Making Was pt. sent in by a medical professional or institution (, PA, PLATE HANGER, urgent care, hospital, or fpc...) When possible be specific @ -No Did you speak to anyone other than the patient for history (EMS, parent, family, police, friend...)? What history was obtained from this source @ -No Did you review nursing and triage notes (agree or disagree)? Why? @ -I reviewed and agree with nursing and triage notes Were old charts reviewed (outside hosp., previous admission, EMS record, old EKG, old radiological studies, urgent care reports/EKG's, fpc records)? Report findings @ -No old charts were reviewed Differential Diagnosis (chest pain, altered mental status, abdominal pain women, abdominal pain men, vaginal bleeding, weakness, fever, dyspnea, syncope, headache, dizziness, GI bleed, back pain, seizure, CVA, palpatations, mental health, musculoskeletal)? @ -Differential Musculoskeletal Muscular strain, contusion, ligament sprain, fracture, arthritis, septic arthritis, bursitis, cellulitis, muscle spasm, nerve compression, DVT, arterial occlusion, herpes zoster, electrolyte abnormality, tumor.... This is not meant to be in all inclusive list EKG interpreted by me (3pts min.). @ -none X-rays interpreted by me (1pt min.). @ -X-ray of the left hip and ap pelvis no evidence of acute fracture dislocation CT interpreted by me (1pt min.). @ -None done U/S interpreted by me (1pt. min.). @ -None done What testing was considered but not performed or refused? (CT, X-rays, U/S, labs)? Why? @ -None What meds were considered but not given or refused? Why? @ -None Did you discuss the management of the patient with other professionals (professionals i.e. , PA, PLATE HANGER, lab, RT, psych nurse, rn social services, equipment operator, teacher, account officer, piano case and bench assembler)? Give summary @ -No Was smoking cessation discussed for >3mins.? @ -No Was critical care preformed (if so, how long)? @ -No Were there social determinants of health that impacted care today? How? (Homelessness, low income, unemployed, alcoholism, drug addiction, transportation, low edu. Level, literacy, decrease access to med. care, assisted, rehab)? @ -No Was there de-escalation of care discussed even if they declined (Discuss DNR or withdrawal of care, Hospice)? DNR status @ -No What co-morbidities impacted this encounter? (DM, HTN, Smoking, COPD, CAD, Cancer, CVA, ARF, Chemo, Hep., AIDS, mental health diagnosis, sleep apnea, morbid obesity)? @ -None Was patient admitted / discharged? Hospital course, mention meds given and route, prescriptions, significant lab abnormalities, going to OR and other pertinent info. @ -Discharge. 84-year-old male presenting with nontraumatic left hip pain. Examination of the hip is unremarkable, range of motion is intact however reports some pain. He denies chest pain medication. X-ray is unremarkable. Provided with [Tylenol 3 instructed to follow-up with family dinner service specialist and primary care provider. discussed with Dr. Muro Undiagnosed new problem with uncertain prognosis? @ -No Drug Therapy requiring intensive monitoring for toxicity (Heparin, Nitro, Insulin, Cardizem)? @ -No Were any procedures done? @ -No Diagnosis/symptom? @ -non-traumatic left hip pain Acute, or Chronic, or Acute on Chronic? @ -acute Uncomplicated (without systemic symptoms) or Complicated (systemic symptoms)? @ -uncomplicated Side effects of treatment? @ -No Exacerbation, Progression, or Severe Exacerbation? @ -No Poses a threat to life or bodily function? How? (Chest pain, [place], [place], pneumonia, PE, COPD, DKA, ARF, appy, cholecystitis, CVA, Diverticulitis, Homicidal, Suicidal, threat to staff... and all critical care pts) @ -No Disposition Clinical Impression: Left hip pain Disposition: HOME SELF-CARE Condition: Good Instructions (If sedation given, give patient instructions): Hip Pain (ED) Additional Instructions: Please return to the Emergency Department if symptoms worsen or any other concerns. Is patient prescribed a controlled substance at d/c from ED?: No Referrals: Judson Newman MD [Primary Care Provider] - 1-2 days Oscar Kaplan DO [Doctor of Osteopathic Medicine] - 1-2 days Time of Disposition: 18:31
[2024-11-20] MEDS: HYDROmorphone 0.5 MG/0.5 ML SYRINGE IM STA (18:13)
--- NOTE | 2024-11-20 18:16 | XR ---
EXAMINATION TYPE: XR Hip LT and AP Pelvis DATE OF EXAM: 11/20/2024 6:08 PM COMPARISON: None. CLINICAL INDICATION: Male, 84 years old with history of pain, pain TECHNIQUE: XR Hip LT and AP Pelvis views were obtained. AP Pelvis also obtained. FINDINGS: There is no acute fracture/dislocation evident. Right hip prosthesis. Mild narrowing the l eft hip joint space. The overlying soft tissue appears unremarkable. IMPRESSION: No acute fracture or dislocation. [facility], , 11/20/2024 6:14 PM
[2024-11-20] MEDS: ACET/COD 300 MG/30 MG STARTER PACK 6 TAB BTL PO STA (19:05)
[2024-11-20 19:13] VITALS: BP 137/69; PULSE 70; RESP 18; TEMP 98
== END 2024-11-20 19:11 | disposition home or self-care (01) ==
LOC: EC 16:52
DX: M25.552 Pain in left hip (principal); Z87.891 Personal history of nicotine dependence
CPT/HCPCS: 73502; 99283; 96372; J1171

== ENCOUNTER → 2024-12-18 | Outpatient (CLI) | payer MEDICARE, BC ==
[2024-12-18 16:24] LABS: Basophils # (A) 0.09 X 10*3/uL (0.00-0.10); Eosinophils # (A) 0.42 X 10*3/uL (0.04-0.35); Eosinophils % (A) 4.8 %; HCT 43.1 % (39.6-50.0); HGB 13.3 g/dL (13.0-17.0); Lymphocytes % (A) 13.7 %; MCH 27.9 pg (27.0-32.0); MCHC 30.9 g/dL (32.0-37.0); MCV 90.4 FL (80.0-97.0); Mean Platelet Volume 10.2 FL (9.5-12.2); Monocytes # (A) 1.16 X 10*3/uL (0.20-1.00); Monocytes % (A) 13.2 %; NRBC Per 100 WBC 0 X 10*3/uL (0.00-0.01); Neutrophils # (A) 5.77 X 10*3/uL (1.80-7.70); Neutrophils % (A) 65.8 %; Platelet Count 199 X 10*3/uL (140-440); RBC 4.77 X 10*6/uL (4.40-5.60); RDW 14.6 % (11.5-14.5); WBC 8.77 X 10*3/uL (4.50-10.00)
[2024-12-18 16:33] LABS: BUN/Creat Ratio 17.13 Ratio (12.00-20.00); Blood Urea Nitrogen 25.7 mg/dL (9.0-27.0); Carbon Dioxide 23.2 mmol/L (21.6-31.8); Chloride 110 mmol/L (96-109); Glucose 107 mg/dL (70-110); Potassium 4.8 mmol/L (3.5-5.5); Sodium 146 mmol/L (135-145)
[2024-12-18 16:34] LABS: Calcium 9.1 mg/dL (8.7-10.3)
== END | disposition home or self-care (01) ==
LOC: LABPAT 11:16
PROVIDERS: ATTEND Orthopaedic Surgery
DX: Z01.818 Encounter for other preprocedural examination (principal); Z22.322 Carrier or suspected carrier of Methicillin resistant Staphylococcus aureus
CPT/HCPCS: 80048; 85025; 86850; 86900; 86901; 87070

== ENCOUNTER 2024-12-28 10:02 | Inpatient (IN) | payer MEDICARE, BC ==
[2024-12-24 16:03] VITALS: BMI 34.4
--- NOTE | 2024-12-28 09:29 | HP ---
HISTORY AND PHYSICAL DATE OF SURGERY: 12/28/2024. HISTORY OF PRESENT ILLNESS: Jose Estrada is an 84-year-old gentleman seen with symptomatic left hip osteoarthritis. We discussed options regarding treatment. He elected to proceed with direct anterior left total hip arthroplasty. Consent regarding the procedure was obtained. Medical clearance was provided by Cardiology and his primary care physician, Dr. Newman. PAST MEDICAL HISTORY: Cardiovascular disease, hypertension, hyperlipidemia. PAST SURGICAL HISTORY: Right total hip arthroplasty, left shoulder surgery, bilateral knee surgery. DAILY MEDICATIONS: 1. Aspirin. 2. Metoprolol. 3. Multivitamin. ALLERGIES: 1. Erythromycin. 2. Penicillin. 3. Percocet. SOCIAL HISTORY: Denies tobacco use. PHYSICAL EVALUATION OF THE LEFT HIP: He has limited range of motion with pain. Positive hip impingement sign. Straight-leg raise negative. Distal neurovascular exam intact. IMAGING STUDIES: Radiographs of the left hip revealed osteoarthritic changes. IMPRESSION: 1. Left hip osteoarthritis. 2. Cardiovascular disease. 3. Hypertension. PLAN: Direct anterior left total hip arthroplasty. Surgery is scheduled for 12/28/2024. MMODL / IJN: [id number] /
[~2024-12-28 10:02] MED LIST changes: -BAMLANIVIMAB (EUA) 700 MG, ETESEVIMAB (EUA) 1,400 MG in SODIUM CHLORIDE 0.9% 50 ML IVPB NR; +LIDOCAINE 1% (10MG/ML) FOR IV START INTRADERMA PRN; -SODIUM CHLORIDE 0.9% 50 ML IVPB NR; -SODIUM CHLORIDE 0.9% 500 ML 500 ML in EMPTY BAG 1 BAG IV PRN; +TRANEXAMIC 1,000 MG/100ML-NACL 1,000 MG in SALINE 1 100ML.BAG IVPB PRN; +fentaNYL (PF) 50 MCG/ML 2 ML AMP IV PRN
[2024-12-28] MEDS: IV FLUID CONTINUATION 1,000 ML IV ONE ×2 (10:15→13:56)
[2024-12-28] MEDS: ACETAMINOPHEN TAB 500 MG TAB PO PRN (11:01)
[2024-12-28] MEDS: LACTATED RINGERS 1,000 ML IV SCH (11:02)
[2024-12-28] MEDS: MELOXICAM 7.5 MG TAB PO PRN (11:02)
[2024-12-28] MEDS: ONDANSETRON 4 MG/2 ML VIAL IVP ONE (11:02)
[2024-12-28] MEDS: DEXAMETHASONE SOD PHOSPHATE 4 MG/ML 1 ML VIAL IVP STA (11:03)
[2024-12-28 11:05] LABS: INR 1.2 (<1.2); Prothrombin Time 12.5 sec (10.0-12.5)
[2024-12-28] MEDS: MIDAZOLAM 2 MG/2 ML VIAL IV ONE (11:16)
[2024-12-28] MEDS ORDERED: TRANEXAMIC 1,000 MG/100ML-NACL PREMIX BAG ONE (12:25)
[2024-12-28] MEDS ORDERED: MIDAZOLAM 2 MG/2 ML VIAL ONE (12:25)
[2024-12-28] MEDS ORDERED: DEXAMETHASONE SOD PHOSPHATE 4 MG/ML 1 ML VIAL ONE (12:25)
[2024-12-28] MEDS ORDERED: PHENYLEPHRINE-0.9% NACL SYG 1,000 MCG/10 ML SYRINGE ONE (12:25)
[2024-12-28] MEDS ORDERED: GLYCOPYRROLATE 0.2 MG/ML 2 ML VIAL ONE (12:25)
[2024-12-28] MEDS ORDERED: fentaNYL (PF) 50 MCG/ML 2 ML AMP ONE (12:25)
[2024-12-28] MEDS ORDERED: ROPIVACAINE 5 MG/ML 30 ML VIAL ONE (12:25)
[2024-12-28] MEDS ORDERED: PROPOFOL 10 MG/ML 20 ML VIAL IV ONE (12:25)
[2024-12-28] MEDS ORDERED: diphenhydrAMINE 50 MG/ML 1 ML VIAL ONE (12:25)
[2024-12-28] MEDS: ceFAZolin 2 GM in DEXTROSE 5% IN WATER 50 ML IVPB PRN (12:36)
--- NOTE | 2024-12-28 14:31 | P.OP ---
Date of Procedure: 12/28/24 Preoperative Diagnosis: Left hip osteoarthritis Postoperative Diagnosis: Left hip osteoarthritis Procedure(s) Performed: Direct anterior left total hip arthroplasty Implants: 1. DePuy Corail KLA size 10 high offset collared press-fit femoral stem 2. DePuy Surry 58 mm multihole press-fit acetabular shell 3. DePuy [place] neutral polyethylene acetabular liner 36 mm ID 58 mm OD 4. Biolox delta ceramic femoral head +1.5 36 mm Anesthesia: regional (Erector spinae block), spinal Surgeon: Jhonny Manzanares Meeting Facilitator #1: Carmine Real Estimated Blood Loss (ml): 55 Pathology: none sent Condition: stable Disposition: PACU Indications for Procedure: 84-year-old gentleman seen with symptomatic left hip osteoarthritis. After having treatment options discussed, he elected to proceed with direct anterior left total hip arthroplasty. Operative Findings: See description of procedure Description of Procedure: The patient was taken to the operative suite. Patient underwent a spinal anesthetic by the department of anesthesia. Patient was then transferred to the [place] table. Patient was given preoperative IV antibiotics and TXA. Both lower extremities were placed in standard leg spars. The hip was then prepped and draped in the normal sterile orthopedic fashion. A standard anterior incision was made beginning 3 cm lateral and 1 cm distal to the ASIS extending 10 cm. Dissection was then carried down through the subcutaneous soft tissues down to the fascia overlying the tensor fascia oswaldo. An incision was now made through the fascia. Careful dissection was taken down exposing the tensor fascia oswaldo muscle. A Cobra retractor was now placed along the medial femoral neck and a second one along the lateral femoral neck. The venous circumflex vessels were now identified, cauterized and clipped. We identified the anterior hip capsule. An incision was made through the hip capsule along the lateral border. I performed a partial anterior capsulectomy. Retractors were now placed around the femoral neck itself. A femoral neck cut was now made with a sagittal saw. It was completed with an osteotome at the lateral neck area. The femoral head was now removed without difficulty. The extremity was now rotated to 60 of external rotation. It was locked in position. Residual labrum was now debrided out. Serial reaming was performed of the acetabulum while Brandon YOO assisted holding an anterior retractor for exposure. Once we reached the appropriate size and a trial was position and fit nicely. The appropriate size was now chosen opened and made available. It was introduced into the acetabulum without difficulty. The C-arm/fluoroscopy was now brought into the operative field. We made sure we had a true AP pelvic view. We now under direct C- arm/fluoroscopy introduced into the acetabular component with appropriate version and inclination. I held the cup in appropriate position well Brandon YOO used a mallet to seat the acetabular component. I noted the component now to be well seated and stable. Acetabular cup introduce her was removed. The C-arm was pulled back. An appropriate liner was introduced and clicked into position. It was felt to be stable. At this point retractors were removed. The extremity was now placed into 135 external rotation with no traction. The leg was now dropped to the ground and adducted. Appropriate retractors were now positioned along the proximal femur. We also placed our femoral look into position. Additional capsular releasing was performed to gain access to the proximal femur. We now used a box osteotome. A canal finder was now utilized. Serial broaching was now performed with the assistance of Brandon YOO tapping the broaches down with a mallet while held the broach in appropriate rotation and position. This was done until we reached the appropriate size with good overall rotational stability. Appropriate calcar planing was performed. A trial head/neck was placed into position. The hip was now reduced. The C- arm/fluoroscopy was brought back into the operative field. I obtained an AP pelvis which demonstrated adequate leg length alignment. The trial components appear adequately sized and positioned the C-arm/fluoroscopy was pulled back. Retractors were repositioned and the hip was dislocated. The leg was again taken down to the ground and adducted. Appropriate retractors were repositioned as well as the femoral hook. All trial components were removed. The femoral implant was opened along with the femoral head. The femoral implant was introduced on the appropriate handle into our pre-broached area. I held the component position well Brandon YOO used a mallet to seat the femoral component. The femoral component was now noted to be well seated and stable.. The femoral head was introduced with good positioning and fixation noted. Retractors were now removed. The hip was now reduced. There appeared be good positioning of the hip confirmed on intraoperative fluoroscopy. Spot films were obtained to document this. A second gram of TXA was given. Bipolar cautery had been utilized intermittently through the procedure for hemostasis. The wound was irrigated copiously with pulse lavage mechanical irrigation. The fascia was repaired with Vicryl suture. The subcutaneous soft tissues were repaired in layers with Vicryl suture. The skin was approximated with pernio/Dermabond. Sterile dressings were applied. Patient was then awakened, transferred to a bed and taken to recovery in stable condition. Brandon YOO assisted in all aspects of this procedure.
[2024-12-28] MEDS ORDERED: ONDANSETRON 4 MG/2 ML VIAL IVP PRN (14:33)
[2024-12-28] MEDS ORDERED: NALOXONE 0.4 MG/ML 1 ML VIAL IV PRN (14:33)
[2024-12-28] MEDS ORDERED: HYDROmorphone 0.5 MG/0.5 ML SYRINGE IVP PRN (14:33)
--- NOTE | 2024-12-28 14:38 | XR ---
EXAMINATION TYPE: XR Hip Limited , [place] guidance operating room Intraoperative/procedural fluoroscopi c services were provided. CLINICAL INDICATION:Male, 84 years old with history of M16.12 LEFT HIP OSTEOARTHRITIS; , [facility] FINDINGS: Multiple fluoroscopic images demonstrating left hip arthroplasty. Hardware appears intact with approp riate alignment. Additional right hip arthroplasty demonstrated. No radiographic evidence for complic ation. Total fluoroscopy time is 16.1 seconds. DAP: 1.0805 Gycm2 Please see the operative/procedural note for further details. [facility], , 12/28/2024 2:36 PM
[2024-12-28] MEDS: HYDROmorphone 0.5 MG/0.5 ML SYRINGE IVP PRN (15:27)
[2024-12-28] MEDS: SODIUM CHLORIDE 0.9% 1,000 ML IV SCH (15:46)
[2024-12-28] MEDS: traMADol 50 MG TAB PO PRN (18:49)
[2024-12-28] MEDS: ASPIRIN 81 MG PO SCH (21:50)
[2024-12-28] MEDS: SENNOSIDES-DOCUSATE SODIUM 1 EACH TAB PO SCH (21:50)
[2024-12-28] MEDS: ceFAZolin 2 GM in DEXTROSE 5% IN WATER 50 ML IVPB SCH (21:50)
--- NOTE | 2024-12-29 01:27 | P.CONS ---
History of Present Illness - Reason for Consult Consult date: 12/28/24 Medical management Requesting physician: Jhonny Manzanares - History of Present Illness Patient is a 84 year old male with past medical history of COPD(no home oxygen), GERD, hypertension, TIA/stroke, BPH, osteoarthritis is seen today in medical consultation for medical management. Today patient underwent elective direct anterior left total hip arthroplasty for left hip osteoarthritis. Currently complains of pain at the site of the surgery. States that his pain is 2 or 3 out of 10 severity. He also endorsed pain around left ankle after the surgery, but reports that its better now. He denies having a bowel movement or passing flatus after surgery. Denies using oxygen at home. Denies fever, chills, cough, chest pain, palpitations, abdominal pain, nausea, vomiting, hematuria, dysuria, timothy tochezia, melena, headache, slurred speech, numbness, tingling, dizziness, lightheadedness, blurred vision, double vision. Vitals T 91.5 F, [place] 72 bpm, RR 18, BP 146/72, oxygen saturation 96% on 3 L nasal cannula Lab show PT 12.5, INR 1.2 Review of systems: Pertinent positives and negatives as discussed in HPI, a complete review of systems was performed and all other systems are negative. Physical examination: Vital signs reviewed General: nontoxic, no distress, appears at stated age Derm: warm, dry, intact Head: atraumatic, normocephalic, symmetric Cardiovascular: S1 S2 reg, no murmur Lungs: CTA bilateral, no rhonchi, no rales, no accessory muscle use Abdominal: soft, non-tender to palpation Extremities: bandage at the left hip, movement restricted proximally due to post surgical pain, strength 5/5 distally on left extremity, strength 5/5 in bilateral upper extremities and right lower extremity, No pedal edema Neuro: Alert, Oriented, Gross neurological examination did not reveal any focal deficits. Psych: well appearing, appropriate affect Assessment/Plan: Patient is a 84 year old male with past medical history of COPD, GERD, hypertension, BPH, osteoarthritis is seen today in medical consultation for medical management after undergoing elective direct anterior left total hip arthroplasty for left hip osteoarthritis. #. History of CAD, s/p prior stenting -Continue aspirin 162 mg p.o. daily, clopidogrel 75 mg p.o. daily, metoprolol 50 mg p.o. twice daily, Imdur 60 mg p.o. every morning, Crestor 40 mg p.o. at bedtime resume plavix once cleared by surgery #. COPD not on home oxygen -Continue Trelegy, montelukast 10 mg p.o. at bedtime #. Hypertension -Continue nifedipine 30 mg p.o. every morning #. BPH -Continue tamsulosin 0.4 mg p.o. at bedtime #. Symptomatic left hip osteoarthritis #. S/p elective direct anterior left total hip arthroplasty on -Patient currently on Kefzol 2 g IVPB Every 8 Hours per primary surgical team -Patient receiving Dilaudid 0.25 mg IVP every 3 hours as needed for pain scale 4-6, Dilaudid 0.5 mg IVP every 3 hours as needed for pain scale 7-10, Dilaudid 0.125 mg IVP every 3 hours as needed for pain scale 1-3 for pain management, fentanyl 50 mcg IV Q3M, tramadol 50 mg p.o. every 6 hours as needed for pain scale 1-5 as needed per primary surgical team -Lactated Ringer 20 mL/h, normal saline 50 mL/h Continue methadone 4 mg IVP daily as needed for nausea and vomiting Continue Senokot 2 tablets p.o. at bedtime for constipation - DVT prophylaxis deferred to primary surgical team Monitor vital signs Monitor CBC Monitor CMP GI prophylaxis: Famotidine 20 mg p.o. daily Dictation was produced using Mon[employer]ise dictation software. please excuse any grammatical, word or spelling errors. Agnes Zuleta MD PGY-1 IM I have seen and evaluated the patient today. I Discussed the case with the resident and agree with the resident's findings I edited the assessment and plan as necessary as documented in the resident's note. Past Medical History Past Medical History: COPD, GERD/Reflux, Hypertension, Osteoarthritis (OA), Prostate Disorder, Supraventricular Tachycardia (SVT) Additional Past Medical History / Comment(s): hx stomach ulcers years ago,freq nighttime urination,BPH History of Any Multi-Drug Resistant Organisms: None Reported Past Surgical History: Appendectomy, Back Surgery, Heart Catheterization, Heart Catheterization With Stent, Joint Replacement, Tonsillectomy Additional Past Surgical History / Comment(s): silke knee replacement, silke shoulder rotator cuff, rt shoulder replacement, silke cataract surgery,rt hip replacementlast heartcath no intervention May 2024,multiple cardiac stents Past Anesthesia/Blood Transfusion Reactions: No Reported Reaction Additional Past Anesthesia/Blood Transfusion Reaction / Comm: no known hx blood transfusion Date of Last Stent Placement:: 2021,2020,2019 Past Psychological History: No Psychological Hx Reported Smoking Status: Former smoker Past Alcohol Use History: Occasional Additional Past Alcohol Use History / Comment(s): quit smoking at age 52 or 53, smoked for 30 yrs- 1 PPD Past Drug Use History: None Reported - Past Family History Mother Family Medical History: Cancer Medications and Allergies Home Medications Medication Instructions Recorded Confirmed Type Metoprolol Tartrate [Lopressor] 50 mg PO BID 06/18/16 12/28/24 History Montelukast [Singulair] 10 mg PO HS 02/06/19 12/28/24 History Propylene Glycol/Peg 400/Pf 1 drop BOTH EYES Q4H PRN 02/06/19 12/28/24 History [Systane 0.3-0.4% Ophth Dropperette] Clopidogrel [Plavix] 75 mg PO DAILY #90 tab 02/08/19 12/28/24 Rx Aspirin 162 mg PO DAILY 12/24/24 12/28/24 History Fluticasone/Umeclidin/Vilanter 1 puff INHALATION DAILY@1400 12/24/24 12/28/24 H istory [Trelegy Ellipta 100-62.5-25] Isosorbide Mononitrate ER [Imdur] 60 mg PO QAM 12/24/24 12/28/24 History NIFEdipine XL [Procardia Xl] 30 mg PO QAM 12/24/24 12/28/24 History Rosuvastatin Calcium [Crestor] 40 mg PO HS 12/24/24 12/28/24 History Tamsulosin HCl [Flomax] 0.4 mg PO HS 12/24/24 12/28/24 History Vit C/E/Zn/Coppr/Lutein/Zeaxan 1 each PO BID 12/24/24 12/28/24 History [Preservision Areds 2 Softgel] Allergies Allergy/AdvReac Type Severity Reaction Status Date / Time erythromycin base Allergy hives, Verified 12/28/24 10:25 tongue swelling hydrocodone [From Vicodin] Allergy "I get Verified 12/28/24 10:25 nasty and angry" oxycodone [From OxyContin] Allergy "I get Verified 12/28/24 10:25 nasty and angry" Penicillins Allergy Unknown Verified 12/28/24 10:25 Childhood red skin prep for surgery Allergy Unknown Uncoded 12/28/24 10:25 Physical Exam Vitals: Vital Signs Temp Pulse Resp BP Pulse Ox 12/28/24 20:00 97.5 F L 72 18 146/72 96 12/28/24 17:30 66 131/80 99 12/28/24 17:20 64 146/72 99 12/28/24 17:05 65 144/79 99 12/28/24 16:45 65 144/73 98 12/28/24 16:30 65 137/75 98 12/28/24 16:17 97.3 F L 67 17 147/72 98 12/28/24 16:06 64 14 142/73 97 12/28/24 15:51 63 14 133/70 96 12/28/24 15:36 62 14 134/67 96 12/28/24 15:21 61 14 109/70 98 12/28/24 15:06 64 14 112/62 94 L 12/28/24 14:51 97.7 F 61 14 93/52 97 12/28/24 11:18 67 16 130/68 96 12/28/24 10:32 97.6 F 64 16 133/77 95 Intake and Output 12/28/24 12/28/24 12/28/24 06:59 14:59 22:59 Intake Total 1700 Output Total 55 Balance 1645 Intake: IV 1700 Output: Estimated Blood Loss 55 Other: Weight 100.6 kg 100.6 kg Results Labs: Abnormal Lab Results - Last 24 Hours (Table) 12/28/24 Range/Units 10:42 INR 1.2 H (<1.2)
[2024-12-29 04:16] LABS: ALT 24 U/L (4-49); AST 32 U/L (17-59); African American GFR (CKD) 40 (>60 ml/min/1.73 sqM); Albumin 3.3 g/dL (3.5-5.0); Albumin/Globulin Ratio 1.4; Alkaline Phosphatase 84 U/L (38-126); Anion Gap 9 mmol/L; Blood Urea Nitrogen 31 mg/dL (9-20); Calcium 8.6 mg/dL (8.4-10.2); Carbon Dioxide 22 mmol/L (22-30); Chloride 108 mmol/L (98-107); Globulin 2.4 g/dL; Glucose 132 mg/dL (74-99); Non-African American GFR(CKD) 35 (>60 ml/min/1.73 sqM); Potassium 5.8 mmol/L (3.5-5.1); Sodium 139 mmol/L (137-145); Total Bilirubin 0.5 mg/dL (0.2-1.3); Total Protein 5.7 g/dL (6.3-8.2)
[2024-12-29] MEDS: SODIUM ZIRCONIUM CYCLOSILICATE 10 GM PACKET PO ONE (05:50)
[2024-12-29] MEDS: TIOTROPIUM 2.5 MCG INHALER INHALATION SCH (07:53)
[2024-12-29] MEDS: SYMBICORT 160-4.5 MCG INHALER INHALATION SCH (07:53)
[2024-12-29] MEDS: HYDROmorphone 0.5 MG/0.5 ML SYRINGE IVP PRN (08:09)
[2024-12-29 09:04] LABS: Basophils # (A) 0.02 X 10*3/uL (0.00-0.10); Basophils % (A) 0.2 %; Eosinophils # (A) 0 X 10*3/uL (0.04-0.35); Eosinophils % (A) 0 %; HCT 37.1 % (39.6-50.0); HGB 11.5 g/dL (13.0-17.0); Lymphocytes # (A) 0.91 X 10*3/uL (0.90-5.00); Lymphocytes % (A) 7.4 %; MCH 28.8 pg (27.0-32.0); Mean Platelet Volume 10.7 FL (9.5-12.2); Monocytes # (A) 1.15 X 10*3/uL (0.20-1.00); Monocytes % (A) 9.4 %; NRBC Per 100 WBC 0 X 10*3/uL (0.00-0.01); Neutrophils # (A) 10.09 X 10*3/uL (1.80-7.70); Platelet Count 173 X 10*3/uL (140-440); RBC 3.99 X 10*6/uL (4.40-5.60); RDW 14.6 % (11.5-14.5); WBC 12.29 X 10*3/uL (4.50-10.00)
[2024-12-29] MEDS: FAMOTIDINE 20 MG TAB PO SCH (09:51)
[2024-12-29] MEDS: METOPROLOL TARTRATE 50 MG TAB PO SCH (09:51)
[2024-12-29] MEDS: ISOSORBIDE MONONITRATE ER 60 MG TAB.ER.24H PO SCH (09:52)
[2024-12-29] MEDS: NIFEdipine XL 30 MG TAB.ER.24 PO SCH (09:52)
[2024-12-29] MEDS ORDERED: IPRATROPIUM-ALBUTEROL 3 ML NEB INHALATION PRN (16:47)
--- NOTE | 2024-12-29 16:48 | P.PN ---
Subjective Progress Note Date: 12/29/24 84 year old M with PMH COPD (no home oxygen), GERD, hypertension, TIA/stroke, BPH, osteoarthritis presents to [facility] for elective surgery. He underwent direct anterior left total hip arthroplasty. [facility] consulted for medical management. 12/29 Patient was seen and examined. Pain well controlled. Urinating freely. CBC, CMP significant for WBC 12.29, RBC 3.99, Hg 11.5, Hct 37.1, K 5.8, Cl 108, BUN 31, Cr 1.75, glu 132, alb 3.3. General: toxic, no distress, appears at stated age Derm: warm, dry Head: atraumatic, normocephalic, symmetric Mouth: no lip lesion, mucus membranes moist Cardiovascular: S1 S2 reg. No murmurs, rubs, gallops Lungs: Scattered expiratory wheezing bilaterally, no accessory muscle use Ext: no gross muscle atrophy, no edema, no contractures Neuro: No focal neurologic deficits. Psych: Alert and oriented. Based on my assessment of this patient, this patient meets a high complexity level of care. Hyperkalemia: Lokelma 10g PO x 1. Repeat K ordered this afternoon and BMP in the AM. LORI on CKD stage IIIb: Increase NS from 50 to 75 cc/hr. Bladder scan PRN. Obtain renal bladder US. Acute blood loss anemia: Expected results of surgery. Leukocytosis: Likely reactive. No signs of active infection. Monitor fever profile. CAD: ASA 81 mg PO BID. Lipitor 80 mg PO QHS. Metoprolol 50 mg PO BID. Re-start Plavix when OK with Ortho. COPD not in acute exacerbation: Symbicort 2 INH QD. Spiriva 2 INH QD. DuoNeb QID PRN. HTN: Metoprolol as above. Nifedipine 30 mg PO QD. Imdur 60 mg PO QD. BPH: Flomax 0.4 mg PO QD. CODE STATUS: FULL CODE. DVT Prophylaxis: ASA BID. GI Prophylaxis: Designated medical POA if patient is not able to make medical decisions for themselves: I have reviewed the following vendor management consultant notes: Ortho. I have reviewed the results of the following tests: CBC, CMP. I have ordered the following tests: Renal US, Bladder scan, repeat K, repeat BMP in the AM. I have discussed the care of this patient with the following independent historian: Family at bedside. I have independently interpreted the following test below: I have discussed the management of this patient with the following physician: Objective - Vital Signs Vital signs: Vital Signs Temp 97.6 F 12/29/24 14:20 Pulse 78 12/29/24 14:20 Resp 17 12/29/24 14:20 BP 143/70 12/29/24 14:20 Pulse Ox 98 12/29/24 14:20 FiO2 Intake & Output 12/28/24 12/29/24 12/29/24 18:59 06:59 18:59 Intake Total 1700 Output Total 55 150 350 Balance 1645 -150 -350 Weight 100.6 kg Intake: IV 1700 Output: Urine 150 350 Estimated Blood Loss 55 Other: Voiding Method Urinal # Voids 2 - Labs CBC & Chem 7: 12/29/24 02:36 12/29/24 13:16 Labs: Abnormal Lab Results - Last 24 Hours (Table) 12/29/24 12/29/24 Range/Units 02:36 02:36 WBC 12.29 H (4.50-10.00) X 10*3/uL RBC 3.99 L (4.40-5.60) X 10*6/uL Hgb 11.5 L (13.0-17.0) g/dL Hct 37.1 L (39.6-50.0) % MCHC 31.0 L (32.0-37.0) g/dL RDW 14.6 H (11.5-14.5) % Immature Gran # 0.12 H (0.00-0.04) X 10*3/uL Neutrophils # 10.09 H (1.80-7.70) X 10*3/uL Monocytes # 1.15 H (0.20-1.00) X 10*3/uL Eosinophils # 0 L (0.04-0.35) X 10*3/uL Potassium 5.8 H (3.5-5.1) mmol/L Chloride 108 H (98-107) mmol/L BUN 31 H (9-20) mg/dL Creatinine 1.75 H (0.66-1.25) mg/dL Glucose 132 H (74-99) mg/dL Total Protein 5.7 L (6.3-8.2) g/dL Albumin 3.3 L (3.5-5.0) g/dL
[2024-12-29] MEDS ORDERED: ARTIFICIAL TEARS-HYPROMELLOSE DROPS 15 ML BTL BOTH EYES PRN (17:06)
--- NOTE | 2024-12-29 19:13 | US ---
EXAMINATION TYPE: US kidneys/renal and bladder DATE OF EXAM: 12/29/2024 COMPARISON: CT 2016 CLINICAL INDICATION: Male, 84 years old with history of LORI on CKD; LORI and CKD TECHNIQUE: Grayscale imaging of the bilateral kidneys and urinary bladder: FINDINGS: EXAM MEASUREMENTS: Right Kidney: 9.6 x 5.5 x 4.3 cm Left Kidney: 9.6 x 5.7 x 4.7 cm suboptimal imaging due to patient body habitus, overlying gas, and patient unable to roll rld/lld f or imaging. Right Kidney: Increased parenchymal echogenicity and evidence of renal cortical thinning. There are m ultiple anechoic cystic areas seen, largest measuring 18.3 x 10.7 x 16.5, increasing in size from malik or CT abdomen study 06/07/2016. No definite solid renal mass. No hydronephrosis. Left Kidney: Increased parenchymal echogenicity and evidence of renal cortical thinning. Multiple ane choic cystic areas seen, largest measuring 5.3 x 5.1 x 5.0cm in the superior pole Bladder: wnl Bilateral Jets seen: yes There is no evidence for hydronephrosis at this point in time. No nephrolithiasis is seen. No solid masses are identified. The urinary bladder is anechoic. IMPRESSION: 1. No evidence of acute obstructive uropathy. 2. Findings suggestive of underlying medical renal disease and numerous bilateral large renal cysts. [facility], , 12/29/2024 7:10 PM
[2024-12-29] MEDS: MONTELUKAST 10 MG TAB PO SCH (20:18)
[2024-12-29] MEDS: TAMSULOSIN 0.4 MG CAP.ER.24H PO SCH (20:18)
[2024-12-29] MEDS: VIT A,C & E-LUTEIN-MINERALS 1 EACH TAB PO SCH (20:19)
[2024-12-29] MEDS: ATORVASTATIN 80 MG TAB PO SCH (20:19)
[2024-12-30 04:39] LABS: African American GFR (CKD) 52 (>60 ml/min/1.73 sqM); Anion Gap 7 mmol/L; Blood Urea Nitrogen 27 mg/dL (9-20); Calcium 8.5 mg/dL (8.4-10.2); Carbon Dioxide 22 mmol/L (22-30); Chloride 107 mmol/L (98-107); Glucose 90 mg/dL (74-99); Non-African American GFR(CKD) 45 (>60 ml/min/1.73 sqM); Potassium 4.5 mmol/L (3.5-5.1); Sodium 136 mmol/L (137-145)
--- NOTE | 2024-12-30 11:51 | P.PN ---
Subjective Progress Note Date: 12/30/24 Principal diagnosis: Left hip osteoarthritis Patient was seen at bedside this morning sitting up in chair with dressing present over left hip. Patient says he was up around 7 this morning doing exercises on his own prior to working with therapy. He says he was able to get up using a walker and make it to the hallway and back which is an improvement from yesterday. Patient says he is still having pain in the left hip at this time but it is not as bad as it was yesterday. Patient says he has been urinating more without any issue. Patient states he has been passing gas little bit. Case management working on rehab placement. Patient states he does have a walker when he does go home. Denies any other issues at this time. Objective - Vital Signs Vital signs: Vital Signs Temp 98.2 F 12/30/24 07:15 Pulse 78 12/30/24 07:15 Resp 18 12/30/24 07:15 BP 122/70 12/30/24 07:15 Pulse Ox 97 12/30/24 08:39 FiO2 Intake & Output 12/29/24 12/30/24 12/30/24 18:59 06:59 18:59 Intake Total 900 Output Total 600 500 Balance -600 400 Intake: Intake, IV Titration 900 Amount Sodium Chloride 0.9% 1, 900 000 ml @ 75 mls/hr IV . [id number] [facility] Rx#:[id number] Output: Urine 600 500 Other: Voiding Method Urinal Urinal # Voids 2 - Exam Left hip: Incision is clean, dry, and intact. The silver foam dressing is in good condition. There is minimal soft tissue swelling and ecchymosis surrounding the medial and lateral aspects of the incision. Calf is soft, no tenderness with palpation. Plantar flexion, dorsiflexion, EHL, FHL are intact. Sensory exam to light touch throughout the extremity is intact, dorsal pedis pulses 2+. - Labs CBC & Chem 7: 12/29/24 02:36 12/30/24 02:27 Labs: Abnormal Lab Results - Last 24 Hours (Table) 12/30/24 Range/Units 02:27 Sodium 136 L (137-145) mmol/L BUN 27 H (9-20) mg/dL Creatinine 1.41 H (0.66-1.25) mg/dL Assessment and Plan Assessment: 1. Left hip osteoarthritis -Postop day 2 status post direct anterior left total hip arthroplasty Plan: 1. Left hip osteoarthritis -direct anterior left total hip arthroplasty surgery performed 12/28/2024. Plan for discharge to rehab. Case management working on rehab placement. Continue PT/OT daily. Pain medication as needed. We will continue to follow patient during stay in hospital. 2. Appreciate medical management 3. Pain management - tramadol 4. DVT prophylaxis - aspirin 81 mg BID 5. GI prophylaxis - senna 6. PT/OT -weightbearing as tolerated with walker and assistance as needed 7. Encourage incentive spirometer use 8. Discharge planning -plan for discharge to rehab on Saturday Time with Patient: Less than 30
--- NOTE | 2024-12-30 11:52 | P.PN ---
Subjective Progress Note Date: 12/29/24 Principal diagnosis: Left hip osteoarthritis Patient was seen at bedside this morning sitting up in chair with dressing present over left hip. Patient states he has been in a lot of pain since surgery yesterday. He says he did try to get up with therapy this morning however he was having a difficult time getting up and bearing any weight to the left lower extremity under his own power and did need assistance with this. Patient says he has also had both knees replaced and other hip replaced he says in 2019 when he had his right hip replaced he did go to rehab after surgery. Physical therapy recommending rehab upon discharge. I discussed at length with patient and family member present during encounter the possibility of rehab and they are open to this. Case management working on rehab placement. Patient states he has urinated a little bit since surgery yesterday. Patient states no bowel movement yet, however, patient says he has been passing gas. Patient says he does have a walker when he does go home. Patient denies any other issues at this time. Objective - Vital Signs Vital signs: Vital Signs Temp 97.6 F 12/29/24 07:27 Pulse 81 12/29/24 07:27 Resp 17 12/29/24 07:27 BP 149/61 12/29/24 07:27 Pulse Ox 99 12/29/24 07:27 FiO2 Intake & Output 12/28/24 12/29/24 12/29/24 18:59 06:59 18:59 Intake Total 1700 Output Total 55 150 150 Balance 1645 -150 -150 Weight 100.6 kg Intake: IV 1700 Output: Urine 150 150 Estimated Blood Loss 55 Other: Voiding Method Urinal # Voids 2 - Exam Left hip: Incision is clean, dry, and intact. The silver foam dressing is in good condition. There is minimal soft tissue swelling and ecchymosis surrounding the medial and lateral aspects of the incision. Calf is soft, no tenderness with palpation. Plantar flexion, dorsiflexion, EHL, FHL are intact. Sensory exam to light touch throughout the extremity is intact, dorsal pedis pulses 2+. - Labs CBC & Chem 7: 12/29/24 02:36 12/29/24 02:36 Labs: Abnormal Lab Results - Last 24 Hours (Table) 04/14/25 04/15/25 04/15/25 Range/Units 10:42 02:36 02:36 WBC 12.29 H (4.50-10.00) X 10*3/uL RBC 3.99 L (4.40-5.60) X 10*6/uL Hgb 11.5 L (13.0-17.0) g/dL Hct 37.1 L (39.6-50.0) % MCHC 31.0 L (32.0-37.0) g/dL RDW 14.6 H (11.5-14.5) % Immature Gran # 0.12 H (0.00-0.04) X 10*3/uL Neutrophils # 10.09 H (1.80-7.70) X 10*3/uL Monocytes # 1.15 H (0.20-1.00) X 10*3/uL Eosinophils # 0 L (0.04-0.35) X 10*3/uL INR 1.2 H (<1.2) Potassium 5.8 H (3.5-5.1) mmol/L Chloride 108 H (98-107) mmol/L BUN 31 H (9-20) mg/dL Creatinine 1.75 H (0.66-1.25) mg/dL Glucose 132 H (74-99) mg/dL Total Protein 5.7 L (6.3-8.2) g/dL Albumin 3.3 L (3.5-5.0) g/dL Assessment and Plan Assessment: 1. Left hip osteoarthritis -Postop day 1 status post direct anterior left total hip arthroplasty Plan: 1. Left hip osteoarthritis -direct anterior left total hip arthroplasty surgery performed yesterday, 12/28/2024. Plan for discharge to rehab. Case management working on rehab placement. Continue PT/OT daily. Pain medication as needed. We will continue to follow patient during stay in hospital. 2. Appreciate medical management 3. Pain management - tramadol 4. DVT prophylaxis - aspirin 81 mg BID 5. GI prophylaxis - senna 6. PT/OT -weightbearing as tolerated with walker and assistance as needed 7. Encourage incentive spirometer use 8. Discharge planning -plan for discharge to rehab later this week Time with Patient: Less than 30
--- NOTE | 2024-12-30 13:12 | P.ANPRN ---
Procedure Note - Anesthesia - Nerve Block Performed Left J Carlos Single Time Out Performed: Yes Date of Procedure: 12/28/24 Procedure Start Time: 11:09 Procedure Stop Time: 11:13 Location of Patient: PreOp Indication: Acute Post-Operative Pain, Requested by Surgeon Sedation Type: Sedate with meaningful contact maintained Preparation: Sterile Prep Position: Supine Needle Types: Pajunk Needle Gauge: 21 Ultrasound used to visualize needle placement: Yes Ultrasound used to observe medication spread: Yes Blood Aspirated: No Pain Paresthesia on Injection Noted: No Resistance on Injection: Normal Image Stored and Saved: Yes Events: Uneventful and Well Tolerated (Ropivacaine 0.5% 20 cc dexamethasone 4 mg)
--- NOTE | 2024-12-30 13:50 | P.PN ---
Subjective Progress Note Date: 12/30/24 84 year old M with PMH COPD (no home oxygen), GERD, hypertension, TIA/stroke, BPH, osteoarthritis presents to [facility] for elective surgery. He underwent direct anterior left total hip arthroplasty. [facility] consulted for medical management. 12/29 Patient was seen and examined. Pain well controlled. Urinating freely. CBC, CMP significant for WBC 12.29, RBC 3.99, Hg 11.5, Hct 37.1, K 5.8, Cl 108, BUN 31, Cr 1.75, glu 132, alb 3.3. Given Lokelma 10g PO x 1. 12/30 Patient was seen and examined. Pain well controlled. Working with PT and OT. Renal US neg for hydro. BMP Na 136, BUN 27, Cr 1.41. Plans for SNF on discharge. General: toxic, no distress, appears at stated age Derm: warm, dry Head: atraumatic, normocephalic, symmetric Mouth: no lip lesion, mucus membranes moist Cardiovascular: S1 S2 reg. No murmurs, rubs, gallops Lungs: Decreased BS bilaterally, no accessory muscle use Ext: no gross muscle atrophy, no edema, no contractures Neuro: No focal neurologic deficits. Psych: Alert and oriented. Based on my assessment of this patient, this patient meets a high complexity level of care. LORI on CKD stage IIIb: Continue NS at 75 cc/hr. Bladder scan PRN. Renal US neg for hydronephrosis. Acute blood loss anemia: Expected results of surgery. Leukocytosis: Likely reactive. No signs of active infection. Monitor fever profile. CAD: ASA 81 mg PO BID. Lipitor 80 mg PO QHS. Metoprolol 50 mg PO BID. Re-start Plavix when OK with Ortho. COPD not in acute exacerbation: Symbicort 2 INH QD. Spiriva 2 INH QD. DuoNeb QID PRN. HTN: BP 122/70, HR 78. Metoprolol as above. Nifedipine 30 mg PO QD. Imdur 60 mg PO QD. BPH: Flomax 0.4 mg PO QD. Resolved: Hyperkalemia. CODE STATUS: FULL CODE. DVT Prophylaxis: ASA BID. GI Prophylaxis: Designated medical POA if patient is not able to make medical decisions for themselves: I have reviewed the following consumer experience consultant notes: Ortho. I have reviewed the results of the following tests: BMP. Renal US. I have ordered the following tests: BMP in the AM. I have discussed the care of this patient with the following independent historian: Family at bedside. I have independently interpreted the following test below: I have discussed the management of this patient with the following physician: Objective - Vital Signs Vital signs: Vital Signs Temp 98.2 F 12/30/24 07:15 Pulse 78 12/30/24 07:15 Resp 18 12/30/24 07:15 BP 122/70 12/30/24 07:15 Pulse Ox 97 12/30/24 08:39 FiO2 Intake & Output 12/29/24 12/30/24 12/30/24 18:59 06:59 18:59 Intake Total 900 Output Total 600 500 Balance -600 400 Intake: Intake, IV Titration 900 Amount Sodium Chloride 0.9% 1, 900 000 ml @ 75 mls/hr IV . [id number] [facility] Rx#:[id number] Output: Urine 600 500 Other: Voiding Method Urinal Urinal # Voids 2 - Labs CBC & Chem 7: 12/29/24 02:36 12/30/24 02:27 Labs: Abnormal Lab Results - Last 24 Hours (Table) 12/30/24 Range/Units 02:27 Sodium 136 L (137-145) mmol/L BUN 27 H (9-20) mg/dL Creatinine 1.41 H (0.66-1.25) mg/dL
[2024-12-31 06:12] LABS: African American GFR (CKD) 61 (>60 ml/min/1.73 sqM); Anion Gap 5 mmol/L; Blood Urea Nitrogen 19 mg/dL (9-20); Calcium 8.8 mg/dL (8.4-10.2); Carbon Dioxide 24 mmol/L (22-30); Chloride 108 mmol/L (98-107); Glucose 94 mg/dL (74-99); Non-African American GFR(CKD) 53 (>60 ml/min/1.73 sqM); Sodium 137 mmol/L (137-145)
[2024-12-31 08:28] LABS: HCT 33.1 % (39.6-50.0); HGB 10.6 g/dL (13.0-17.0); MCV 90.4 FL (80.0-97.0); Mean Platelet Volume 10.3 FL (9.5-12.2); NRBC Per 100 WBC 0 X 10*3/uL (0.00-0.01); Platelet Count 142 X 10*3/uL (140-440); RBC 3.66 X 10*6/uL (4.40-5.60); RDW 14.8 % (11.5-14.5); WBC 10.01 X 10*3/uL (4.50-10.00)
[2024-12-31 09:10] LABS: Basophils # (A) 0.08 X 10*3/uL (0.00-0.10); Basophils % (A) 0.8 %; Eosinophils # (A) 0.45 X 10*3/uL (0.04-0.35); Eosinophils % (A) 4.5 %; Lymphocytes # (A) 1.27 X 10*3/uL (0.90-5.00); Lymphocytes % (A) 12.7 %; Monocytes # (A) 1.73 X 10*3/uL (0.20-1.00); Monocytes % (A) 17.3 %; Neutrophils # (A) 6.26 X 10*3/uL (1.80-7.70); Neutrophils % (A) 62.5 %
--- NOTE | 2024-12-31 11:36 | P.PN ---
Subjective Progress Note Date: 12/31/24 Principal diagnosis: Left hip osteoarthritis Patient was seen at bedside this morning sitting up in chair with dressing present over left hip. Patient says he did get up with therapy this morning and walked out of the hallway which is an improvement over yesterday. Patient says he is still having pain in the left hip at this time but it is not as bad as it was yesterday. Patient says he has been urinating more without any issue. Patient states he has been passing gas little bit. Case management working on rehab placement. Patient states he does have a walker when he does go home. Denies any other issues at this time. Objective - Vital Signs Vital signs: Vital Signs Temp 97.7 F 12/31/24 07:14 Pulse 80 12/31/24 07:14 Resp 16 12/31/24 07:14 BP 154/71 12/31/24 07:14 Pulse Ox 95 12/31/24 07:14 FiO2 Intake & Output 12/30/24 12/31/24 12/31/24 18:59 06:59 18:59 Output Total 100 1200 Balance -100 -1200 Output: Urine 100 1200 Other: Voiding Method Urinal Toilet Urinal # Voids 2 - Exam Left hip: Incision is clean, dry, and intact. The silver foam dressing is in good condition. There is minimal soft tissue swelling and ecchymosis surrounding the medial and lateral aspects of the incision. Calf is soft, no tenderness with palpation. Plantar flexion, dorsiflexion, EHL, FHL are intact. Sensory exam to light touch throughout the extremity is intact, dorsal pedis pulses 2+. - Labs CBC & Chem 7: 12/31/24 05:09 12/31/24 05:09 Labs: Abnormal Lab Results - Last 24 Hours (Table) 12/31/24 12/31/24 Range/Units 05:09 05:09 WBC 10.01 H (4.50-10.00) X 10*3/uL RBC 3.66 L (4.40-5.60) X 10*6/uL Hgb 10.6 L (13.0-17.0) g/dL Hct 33.1 L (39.6-50.0) % RDW 14.8 H (11.5-14.5) % Immature Gran # 0.22 H (0.00-0.04) X 10*3/uL Monocytes # 1.73 H (0.20-1.00) X 10*3/uL Eosinophils # 0.45 H (0.04-0.35) X 10*3/uL Chloride 108 H (98-107) mmol/L Assessment and Plan Assessment: 1. Left hip osteoarthritis -Postop day 3 status post direct anterior left total hip arthroplasty Plan: 1. Left hip osteoarthritis -direct anterior left total hip arthroplasty surgery performed 12/28/2024. Plan for discharge to rehab. Case management working on rehab placement. Continue PT/OT daily. Pain medication as needed. We will continue to follow patient during stay in hospital. 2. Appreciate medical management 3. Pain management - tramadol 4. DVT prophylaxis - aspirin 81 mg BID 5. GI prophylaxis - senna 6. PT/OT -weightbearing as tolerated with walker and assistance as needed 7. Encourage incentive spirometer use 8. Discharge planning -discharge to rehab tmrw, 01/01/2025 Time with Patient: Less than 30
--- NOTE | 2024-12-31 13:50 | P.PN ---
Subjective Progress Note Date: 12/31/24 84 year old M with PMH COPD (no home oxygen), GERD, hypertension, TIA/stroke, BPH, osteoarthritis presents to [facility] for elective surgery. He underwent direct anterior left total hip arthroplasty. [facility] consulted for medical management. 12/29 Patient was seen and examined. Pain well controlled. Urinating freely. CBC, CMP significant for WBC 12.29, RBC 3.99, Hg 11.5, Hct 37.1, K 5.8, Cl 108, BUN 31, Cr 1.75, glu 132, alb 3.3. Given Lokelma 10g PO x 1. 12/30 Patient was seen and examined. Pain well controlled. Working with PT and OT. Renal US neg for hydro. BMP Na 136, BUN 27, Cr 1.41. Plans for SNF on discharge. 12/31 Patient was seen and examined. No complaints. CBC, BMP significant for WBC 10.01, RBC 3.66, Hg 10.6, Hct 33.1, Cl 108. Plans for SNF tomorrow. General: toxic, no distress, appears older than stated age Derm: warm, dry Head: atraumatic, normocephalic, symmetric Mouth: no lip lesion, mucus membranes moist Cardiovascular: good distal perfusion in all 4 extremities Lungs: breathing comfortably, no accessory muscle use Ext: no gross muscle atrophy, no edema, no contractures Neuro: No focal neurologic deficits. Psych: Alert and oriented. Based on my assessment of this patient, this patient meets a high complexity level of care. Acute blood loss anemia: Expected results of surgery. Leukocytosis: Likely reactive. No signs of active infection. Monitor fever profile. CKD stage IIIb: DC IVF and encourage hydration by mouth. Bladder scan PRN. Renal US neg for hydronephrosis. CAD: ASA 81 mg PO BID. Lipitor 80 mg PO QHS. Metoprolol 50 mg PO BID. Re-start Plavix when OK with Ortho. COPD not in acute exacerbation: Symbicort 2 INH QD. Spiriva 2 INH QD. DuoNeb QID PRN. HTN: BP 154/71, HR 80. Metoprolol as above. Nifedipine 30 mg PO QD. Imdur 60 mg PO QD. BPH: Flomax 0.4 mg PO QD. Resolved: Hyperkalemia, LORI CODE STATUS: FULL CODE. DVT Prophylaxis: ASA BID. GI Prophylaxis: Designated medical POA if patient is not able to make medical decisions for themselves: I have reviewed the following sales and service consultant notes: Ortho. I have reviewed the results of the following tests: CBC, BMP. I have ordered the following tests: I have discussed the care of this patient with the following independent historian: Family at bedside. Case management. I have independently interpreted the following test below: I have discussed the management of this patient with the following physician: Objective - Vital Signs Vital signs: Vital Signs Temp 97.7 F 12/31/24 07:14 Pulse 80 12/31/24 07:14 Resp 16 12/31/24 07:14 BP 154/71 12/31/24 07:14 Pulse Ox 95 12/31/24 07:14 FiO2 Intake & Output 12/30/24 12/31/24 12/31/24 18:59 06:59 18:59 Output Total 100 1200 Balance -100 -1200 Output: Urine 100 1200 Other: Voiding Method Urinal Toilet Urinal # Voids 2 - Labs CBC & Chem 7: 12/31/24 05:09 12/31/24 05:09 Labs: Abnormal Lab Results - Last 24 Hours (Table) 12/31/24 12/31/24 Range/Units 05:09 05:09 WBC 10.01 H (4.50-10.00) X 10*3/uL RBC 3.66 L (4.40-5.60) X 10*6/uL Hgb 10.6 L (13.0-17.0) g/dL Hct 33.1 L (39.6-50.0) % RDW 14.8 H (11.5-14.5) % Immature Gran # 0.22 H (0.00-0.04) X 10*3/uL Monocytes # 1.73 H (0.20-1.00) X 10*3/uL Eosinophils # 0.45 H (0.04-0.35) X 10*3/uL Chloride 108 H (98-107) mmol/L
--- NOTE | 2025-01-01 11:51 | P.PN ---
Subjective Progress Note Date: 01/01/25 Principal diagnosis: Left hip osteoarthritis Patient was seen at bedside this morning sitting up in chair with dressing present over left hip. Patient says he did get up with therapy this morning and walked out of the hallway. Patient says he is still having pain in the left hip at this time but it is not as bad as it was yesterday. Patient says he has been urinating more without any issue. Patient states he has been passing gas little bit. Patient states he does have a walker when he does go home. Denies any other issues at this time. Objective - Vital Signs Vital signs: Vital Signs Temp 98.2 F 01/01/25 07:14 Pulse 82 01/01/25 07:14 Resp 17 01/01/25 07:14 BP 131/75 01/01/25 07:14 Pulse Ox 92 L 01/01/25 07:14 FiO2 Intake & Output 12/31/24 01/01/25 01/01/25 18:59 06:59 18:59 Intake Total 420 Output Total 650 Balance -650 420 Intake: Oral 420 Output: Urine 650 Other: Voiding Method Toilet Toilet Urinal Urinal # Voids 6 1 1 - Exam Left hip: Incision is clean, dry, and intact. The silver foam dressing is in good condition. There is minimal soft tissue swelling and ecchymosis surrounding the medial and lateral aspects of the incision. Calf is soft, no tenderness with p alpation. Plantar flexion, dorsiflexion, EHL, FHL are intact. Sensory exam to light touch throughout the extremity is intact, dorsal pedis pulses 2+. - Labs CBC & Chem 7: 12/31/24 05:09 12/31/24 05:09 Assessment and Plan Assessment: 1. Left hip osteoarthritis -Postop day 4 status post direct anterior left total hip arthroplasty Plan: 1. Left hip osteoarthritis -direct anterior left total hip arthroplasty surgery performed 12/28/2024. Discharge to rehab today. Continue PT/OT daily. Pain medication as needed. 2. Appreciate medical management 3. Pain management - tramadol 4. DVT prophylaxis - aspirin 81 mg BID 5. GI prophylaxis - senna 6. PT/OT -weightbearing as tolerated with walker and assistance as needed 7. Encourage incentive spirometer use 8. Discharge planning -discharge to rehab today, 01/01/2025 Time with Patient: Less than 30
--- NOTE | 2025-01-01 11:54 | P.DS ---
Providers Date of admission: 12/29/24 10:20 Expected date of discharge: 01/01/25 Attending physician: Jhonny Manzanares Consults: 12/28/24 14:33 Consult Physician Routine Consulting Provider: Stalin Agarwal Consult Reason/Comments: Medical management Do you want consulting provider notified?: Yes Primary care physician: Judson Newman Hospital Course: Date of admission: 12/28/2024 Date of discharge: 01/01/2025 Admission diagnosis: Left hip osteoarthritis Discharge diagnosis: Same Attending physician: Dr. Manzanares Surgical procedures: Direct anterior left total hip arthroplasty Brief history: Patient is a 84-year-old male with a history of progressive primary left hip osteoarthritis. At this point patient has failed conservative treatment measures and has opted to proceed with a elective direct anterior left total hip arthroplasty. Hospital course: Details of patient's surgery can be found in operative report. Patient tolerated the procedure well and was subsequently transported to orthopedic floor. Patient's orthopeidc and medical care was provided daily. Patient had daily laboratory tests performed for evaluation of overall blood counts. Patient had daily physical therapy to include strengthening range of motion as well as education with walker ambulation. Patient was treated with aspirin for their postoperative DVT prophylaxis during their inpatient stay. Patient was noted to have a relatively uneventful postoperative course. Patient reported satisfactory pain control with oral pain medications by postoperative day 4. Patient showed satisfactory progress with physical therapy. Patient moved steadily through the program and had no difficulty meeting the goals by postoperative day 4. Given patient's otherwise satisfactory course and having met physical therapy goals, plan is to discharge patient to rehab on postoperative day 4. Discharge condition/disposition: Patient will be discharged to rehab in stable condition. Discharge medications: Instructions are given on resumption of patient's normal daily medications per primary care recommendation, in addition patient will be prescribed tramadol; aspirin 80 mg twice daily; senna. Discharge instructions: 1. Wound care and infection precautions, keep incision dry and covered while showering, no lotions, creams, moisturizers. No soaking, tubs, pools, hottubs. Do not scrub over the incision. 2. Weight-bear as tolerated with walker / cane until follow-up. 3. Ice and elevate when necessary. Do not exceed 20 minutes per hour with ice pack. 4. Utilize compression sleeve until seen at first follow up appointment. 5. Nursing care. 6. Physical therapy. 7. Pain meds and anticoagulants per prescription. 8. Pain medication has potential to cause constipation. Increase oral fluid and fiber intake. Contact primary care provider if you have not had a bowel movement within 48 hours after discharge 9. No anti-inflammatory medication until discussed at first post operative visit, this including Motrin, Aleve, Mobic, Diclofenac. 10. Follow up in office at 2 weeks postop with Brandon Real PA-C / Paul Espana PA-C 11. Follow up with your primary care doctor 7-10 days after discharge. 12. Contact [facility] with any questions, . Assessment: Left hip osteoarthritis Procedures: Direct anterior left total hip arthroplasty Patient Condition at Discharge: Good Plan - Discharge Summary Discharge Rx Participant: No New Discharge Prescriptions: New traMADol HCL 50 mg PO Q6H #24 tab Sennosides/Docusate Sodium [Senna Plus 8.6-50 mg Softgel] 1 each PO DAILY #20 capsule Continue Aspirin 162 mg PO DAILY No Action Metoprolol Tartrate [Lopressor] 50 mg PO BID Montelukast [Singulair] 10 mg PO HS Propylene Glycol/Peg 400/Pf [Systane 0.3-0.4% Ophth Dropperette] 1 drop BOTH EYES Q4H PRN PRN Reason: systane complete Dry Eye(S) Clopidogrel [Plavix] 75 mg PO DAILY #90 tab NIFEdipine XL [Procardia Xl] 30 mg PO QAM Fluticasone/Umeclidin/Vilanter [Trelegy Ellipta 100-62.5-25] 1 puff INHALATION DAILY@1400 Tamsulosin HCl [Flomax] 0.4 mg PO HS Rosuvastatin Calcium [Crestor] 40 mg PO HS Vit C/E/Zn/Coppr/Lutein/Zeaxan [Preservision Areds 2 Softgel] 1 each PO BID Isosorbide Mononitrate ER [Imdur] 60 mg PO QAM Discharge Medication List Metoprolol Tartrate [Lopressor] 50 mg PO BID 06/18/16 [History] Montelukast [Singulair] 10 mg PO HS 02/06/19 [History] Propylene Glycol/Peg 400/Pf [Systane 0.3-0.4% Ophth Dropperette] 1 drop BOTH EYES Q4H PRN 02/06/19 [History] Clopidogrel [Plavix] 75 mg PO DAILY #90 tab 02/08/19 [Rx] Aspirin 162 mg PO DAILY 12/24/24 [History] Fluticasone/Umeclidin/Vilanter [Trelegy Ellipta 100-62.5-25] 1 puff INHALATION DAILY@1400 12/24/24 [History] Isosorbide Mononitrate ER [Imdur] 60 mg PO QAM 12/24/24 [History] NIFEdipine XL [Procardia Xl] 30 mg PO QAM 12/24/24 [History] Rosuvastatin Calcium [Crestor] 40 mg PO HS 12/24/24 [History] Tamsulosin HCl [Flomax] 0.4 mg PO HS 12/24/24 [History] Vit C/E/Zn/Coppr/Lutein/Zeaxan [Preservision Areds 2 Softgel] 1 each PO BID 12/24/24 [History] Sennosides/Docusate Sodium [Senna Plus 8.6-50 mg Softgel] 1 each PO DAILY #20 capsule 01/01/25 [Rx] traMADol HCL 50 mg PO Q6H #24 tab 01/01/25 [Rx] Follow up Appointment(s)/Referral(s): Carmine Real PAC [[employer]] - 2 Weeks Patient Instructions/Handouts: Anterior Hip Replacement (GEN) Activity/Diet/Wound Care/Special Instructions: Orthopedic Discharge Instructions: 1. Wound care and infection precautions, keep incision dry and covered while showering, no lotions, creams, moisturizers. No soaking, pools, hot tubs. Do not scrub over incision. 2. Weight-bear as tolerated with walker / cane until follow-up. 3. Ice and elevate when necessary. Do not exceed 20 minutes per hour with ice pack. 4. Utilize compression sleeve until seen at first follow up appointment. 5. Pain meds and anticoagulants per prescription. 6. Pain medication has potential to cause constipation. Increase oral fluid and fiber intake. Contact primary care provider if you have not had a bowel movement within 48 hours after discharge. 7. No anti-inflammatory medication until discussed at first post operative visit, this including Motrin, Aleve, Mobic, Diclofenac. 8. Follow up in office at 2 weeks postop with Brandon Real PA-C / Paul Espana PA-C 9. Follow up with your primary care doctor 7-10 days after discharge. 10. Contact [facility] with any questions, . Keep incision clean, dry, intact. While showering, cover silver foam dressing with Saran wrap. Keep silver foam dressing on until 01/04/2025. Once silver foam dressing is removed, it is okay to shower directly over incision. Discharge Disposition: TRANSFER TO SNF/ECF
--- NOTE | 2025-01-01 12:04 | P.PN ---
Subjective Progress Note Date: 01/01/25 84 year old M with PMH COPD (no home oxygen), GERD, hypertension, TIA/stroke, BPH, osteoarthritis presents to [facility] for elective surgery. He underwent direct anterior left total hip arthroplasty. [facility] consulted for medical management. 12/29 Patient was seen and examined. Pain well controlled. Urinating freely. CBC, CMP significant for WBC 12.29, RBC 3.99, Hg 11.5, Hct 37.1, K 5.8, Cl 108, BUN 31, Cr 1.75, glu 132, alb 3.3. Given Lokelma 10g PO x 1. 12/30 Patient was seen and examined. Pain well controlled. Working with PT and OT. Renal US neg for hydro. BMP Na 136, BUN 27, Cr 1.41. Plans for SNF on discharge. 12/31 Patient was seen and examined. No complaints. CBC, BMP significant for WBC 10.01, RBC 3.66, Hg 10.6, Hct 33.1, Cl 108. Plans for SNF tomorrow. 01/01 Patient was seen and examined. No complaints. Urinating freely. No bowel movement yet but passing gas. No new lab work done today. Plans for SNF today. General: toxic, no distress, appears older than stated age Derm: warm, dry Head: atraumatic, normocephalic, symmetric Mouth: no lip lesion, mucus membranes moist Cardiovascular: Normal S1 S2. No murmurs. Lungs: Clear to auscultation bilaterally, no accessory muscle use Abd: Soft. non tender. + BS Ext: no gross muscle atrophy, no edema, no contractures Neuro: No focal neurologic deficits. Psych: Alert and oriented. Based on my assessment of this patient, this patient meets a high complexity level of care. Acute blood loss anemia: Expected results of surgery. Leukocytosis: Likely reactive. No signs of active infection. Monitor fever profile. CKD stage IIIb: DC IVF and encourage hydration by mouth. Bladder scan PRN. Renal US neg for hydronephrosis. CAD: ASA 81 mg PO BID. Lipitor 80 mg PO QHS. Metoprolol 50 mg PO BID. Re-start Plavix 75 mg PO QD on discharge. COPD not in acute exacerbation: Symbicort 2 INH QD. Spiriva 2 INH QD. DuoNeb QID PRN. HTN: BP 131/75, HR 82. Metoprolol as above. Nifedipine 30 mg PO QD. Imdur 60 mg PO QD. BPH: Flomax 0.4 mg PO QD. Resolved: Hyperkalemia, LORI CODE STATUS: FULL CODE. DVT Prophylaxis: ASA BID. GI Prophylaxis: Designated medical POA if patient is not able to make medical decisions for themselves: I have reviewed the following distributed energy systems consultant notes: Ortho. I have reviewed the results of the following tests: I have ordered the following tests: I have discussed the care of this patient with the following independent historian: Family at bedside. RN. I have independently interpreted the following test below: I have discussed the management of this patient with the following physician: Objective - Vital Signs Vital signs: Vital Signs Temp 98.2 F 01/01/25 07:14 Pulse 82 01/01/25 07:14 Resp 17 01/01/25 07:14 BP 131/75 01/01/25 07:14 Pulse Ox 92 L 01/01/25 07:14 FiO2 Intake & Output 12/31/24 01/01/25 01/01/25 18:59 06:59 18:59 Intake Total 420 Output Total 650 Balance -650 420 Intake: Oral 420 Output: Urine 650 Other: Voiding Method Toilet Toilet Urinal Urinal # Voids 6 1 1 - Labs CBC & Chem 7: 12/31/24 05:09 12/31/24 05:09
[2025-01-01 14:37] VITALS: BP 121/68; PULSE 74; RESP 18; TEMP 98.1
== END 2025-01-01 14:48 | DRG 470 ==
LOC: OR 10:02 → 4SSUR 15:21 → OR 12-29 10:20
PROVIDERS: ADMIT Orthopaedic Surgery; ATTEND Orthopaedic Surgery
PROC: 0SRB04Z Replacement of Left Hip Joint with Ceramic on Polyethylene Synthetic Substitute, Open Approach (ICD-10-PCS; principal; 2024-12-29)
PROC: 8E0YXBG Computer Assisted Procedure of Lower Extremity, With Computerized Tomography (ICD-10-PCS; 2024-12-29)
PROC: 3E0T3BZ Introduction of Anesthetic Agent into Peripheral Nerves and Plexi, Percutaneous Approach (ICD-10-PCS; 2024-12-29)
DX: M16.12 Unilateral primary osteoarthritis, left hip (principal); D62 Acute posthemorrhagic anemia; J44.9 Chronic obstructive pulmonary disease, unspecified; N18.32 Chronic kidney disease, stage 3b; I12.9 Hypertensive chronic kidney disease with stage 1 through stage 4 chronic kidney disease, or unspecified chronic kidney disease; N17.9 Acute kidney failure, unspecified; D72.829 Elevated white blood cell count, unspecified; E78.5 Hyperlipidemia, unspecified; E87.5 Hyperkalemia; I25.10 Atherosclerotic heart disease of native coronary artery without angina pectoris; N40.0 Benign prostatic hyperplasia without lower urinary tract symptoms; Z79.02 Long term (current) use of antithrombotics/antiplatelets; Z79.82 Long term (current) use of aspirin; Z79.899 Other long term (current) drug therapy; Z87.11 Personal history of peptic ulcer disease; Z87.891 Personal history of nicotine dependence; Z95.5 Presence of coronary angioplasty implant and graft; Z96.611 Presence of right artificial shoulder joint; Z96.612 Presence of left artificial shoulder joint; Z96.641 Presence of right artificial hip joint; Z96.653 Presence of artificial knee joint, bilateral; Z88.1 Allergy status to other antibiotic agents; Z88.0 Allergy status to penicillin; Z88.5 Allergy status to narcotic agent
CPT/HCPCS: 64473; 73501; 76770; 80048; 80053; 84132; 85025; 85610; 94760